=== PATIENT | male | born 1940 | race Caucasian/White ===

== ENCOUNTER 2016-06-18 16:22 | Emergency (ER) | payer MEDICARE, OTHER ==
[~2016-06-18 16:22] MED LIST: AMIT10 PO; ASAB PO; BIST PO; CALTRA600D PO; CARASPUDL PO; CENTRUM PO; CENTRUM SILVER PO; CENTRUM TAB1 TAB PO; CITRACAL PO; CORDARONE PO; CYANO1000T PO; DEPAKOT250 PO; DSS PO; DURA25 TOP; ERY-TAB250 MG PO; IRON OTC PO; IRON PO; IRON325 MG PO; K500 PO; KEFLEX PO; KENCR.1 TOP; LOP25 PO; LORTABLIQ PO; MEGACEUDL PO; MELA3 PO; METOPROLOL; METOPROLOL 12.5 MG PO; METOPROLOL 25MG PO; OS500+D PO; OXYIR5 MG PO; PCET PO; PERCOCET1 TA2 PO; PLAVIX PO; PRILO PO; PRILOSEC40 MG PO; PRIN5 PO; PROTONIX PO; REG PO; STERAP512; T PO; VITAMIN B PO; VITAMIN D OTC PO; VITAMIN D1000 UNI1 PO; VITAMIN D31000 UNIT PO; VITAMIN D400 UNI1 PO; ZOCOR10 PO; ZOCOR20 PO; [UNRECOGNIZED DRUG - REMARK] PO
[2016-06-18 17:49] LABS: BASOPHILS 0.2 %; BASOPHILS ABSOLUTE 0.01 10/3/uL (0.0-0.16); EOSINOPHILS 0.8 %; EOSINOPHILS ABSOLUTE 0.05 10/3/uL (0.0-0.53); ER CBC TAT 0 Hrs 05 Mins; HEMATOCRIT 32.2 % (40.0-51.0); HEMOGLOBIN 10.8 g/dL (13.6-17.8); IMMATURE GRANULOCYTES 0.8 %; IMMATURE GRANULOCYTES ABSOLUTE 0.05 10/3/uL (0.0-0.11); MEAN CORPUSCULAR HEMOGLOB 32.2 pg (26.0-34.0); MEAN PLATELET VOLUME 11.9 fL (9.2-13.0); MONOCYTES 16.3 %; MONOCYTES ABSOLUTE 1.08 10/3/uL (0.21-1.20); NEUTROPHILS 69.9 %; NEUTROPHILS ABSOLUTE 4.65 10/3/uL (2.02-8.40); PLATELET COUNT 149 10/3/uL (150-400); RED CELL COUNT 3.35 10/6/uL (4.7-6.1); WHITE BLOOD CELLS 6.6 10/3/uL (4.5-10.5)
[2016-06-18 17:51] LABS: MANUAL DIFF NO %; MEAN CORPUS HGB CONC 33.5 g/dL (32.0-36.0); MEAN CORPUSCULAR VOLUME 96.1 fL (80-100); RBC DISTRIBUTION WIDTH 17.1 % (12.0-16.0)
[2016-06-18 17:58] LABS: INTERNATIONAL NORMAL RATI 1.1 UNITS (-); PARTIAL THROMBO TIME 28.2 SEC (22.5-37.2); PROTIME (NOT ORD) 14.5 SEC (12.0-14.5)
[2016-06-18 18:08] LABS: CALCIUM, SERUM 8.6 MG/DL (8.5-10.4); CHLORIDE, SERUM 108 MMOL/L (96-112); CO2 (CARBON DIOXIDE) 23 MMOL/L (24-34); CREATININE 0.93 MG/DL (0.70-1.30); GFR AFRICAN AMERICAN 92 ML/MIN (>=60); GFR NON AFRICAN AMERICAN 79 ML/MIN (>=60); GLUCOSE, SERUM 100 MG/DL (60-99); SODIUM, SERUM 142 MMOL/L (135-148)
[2016-06-18 18:09] LABS: BUN (BLOOD UREA NITROGEN) 24 MG/DL (6-23)
[2016-06-18 18:11] LABS: CHEST PAIN PROFILE TAT 0 Hrs 27 Mins; TROPONIN I 0.06 NG/ML (<0.05)
[2016-06-18] MEDS ORDERED: MEGACEUDL PO (19:09)
[2016-06-18] MEDS ORDERED: ADVIL PO (19:10)
[2016-06-18 19:11] LABS: ALBUMIN 2.5 G/DL (3.5-5.0); ALKALINE PHOSPHATASE 101 U/L (45-117); DIRECT BILIRUBIN 0.2 MG/DL (0.0-0.4); INDIRECT BILIRUBIN(NOT ORDER) 0.2 MG/DL (0.1-0.9); SGOT(AST) 52 U/L (5-40); SGPT(ALT) 69 U/L (5-65); TOTAL BILIRUBIN 0.4 MG/DL (0-1.2); TOTAL PROTEIN 6.8 G/DL (6.0-8.5)
[2016-06-18 20:09] LABS: INFLUENZA A SCREEN NEGATIVE (NEGATIVE); INFLUENZA B SCREEN NEGATIVE (NEGATIVE)
[2016-11-03] MEDS ORDERED: SINCR25100 PO (17:41)
[2016-11-03] MEDS ORDERED: LOP25 PO (17:42)
[2016-11-03] MEDS ORDERED: AMIT10 PO (17:42)
[2016-11-03] MEDS ORDERED: PRILO PO (17:42)
[2016-11-03] MEDS ORDERED: ZOCOR10 PO (17:42)
[2016-11-03] MEDS ORDERED: ENDOCET1 TAB PO (17:43)
[2016-11-03] MEDS ORDERED: L20 PO (17:43)
[2016-11-03] MEDS ORDERED: ASAB PO (17:43)
[2016-11-03] MEDS ORDERED: BIST PO (17:44)
[2016-11-03] MEDS ORDERED: CALCIUM +VIT D PO (17:45)
[2016-11-03] MEDS ORDERED: CENTRUM PO (17:45)
[2016-11-03] MEDS ORDERED: IRON SUPPLEMENT PO (17:45)
[2016-11-03] MEDS ORDERED: VITAMIN D31000 UNIT PO (17:46)
[2016-11-03] MEDS ORDERED: ADVIL PO (17:47)
== END 2016-06-18 20:36 | disposition home or self-care (01) ==
LOC: ER 16:22
PROVIDERS: Emergency Medicine; Hospitalist
DX: E46 Unspecified protein-calorie malnutrition (principal); Z86.73 Personal history of transient ischemic attack (TIA), and cerebral infarction without residual deficits; Z95.1 Presence of aortocoronary bypass graft; Z79.82 Long term (current) use of aspirin; Z79.899 Other long term (current) drug therapy
CPT/HCPCS: 71010; 80048; 80076; 83735; 83880; 84484; 85025; 85610; 85730; 87040; 87804; 93970; 99284

== ENCOUNTER 2016-09-02 15:15 | Inpatient (IN) | payer MEDICARE, OTHER ==
--- NOTE | ~2016-09-02 | OP ---
Record Of Operation [facility] [address] [place]. [address] NAME: TEODORO MCCLAIN : 40 STATUS : ADM IN PAT#: [id number] AGE: 76 ADM/REG DATE : 09/02/16 MR#: [id number] REPORT SERV DATE: 09/04/16 DICTATED BY: PATRICIA ESCALANTE III DATE: 09/04/16 REPORT STATUS : Draft TRANSCRIBED BY: MODL DATE: 09/04/16 DATE OF PROCEDURE: 09/04/2016 PREOPERATIVE DIAGNOSES: Chronic malnutrition, severe gastroparesis, with Staph sepsis, presumably related to Port-A-Cath. POSTOPERATIVE DIAGNOSES: Chronic malnutrition, severe gastroparesis, with Staph sepsis, presumably related to Port-A-Cath. PROCEDURE: Removal of left subclavian vein Port-A-Cath. SURGEON: Patricia Escalante M.D. ANESTHESIA: Local with sedation. COMPLICATIONS: None. ESTIMATED BLOOD LOSS: 20 mL. SPECIMENS: Port-A-Cath for culture and identification. DRAINS: None. LAP AND SPONGE COUNT: Correct x3. BRIEF HISTORY: This 76-year-old male, had been admitted to the hospital emergently with evidence for sepsis. Blood cultures returned being positive for gram-positive Staph. After complete workup, it was felt that the patient's Port-A-Cath, which has been in place for four years, was the most likely source for this. It was felt that removal of Port-A-Cath was indicated. The procedure, risks, benefits, and alternatives, including not limited to the risk for bleeding, infection, air embolus, pericardial tamponade, dislodgement of the Port-A-Cath tubing requiring extraction, and unforeseen complications including deep venous thrombosis, pulmonary embolus, myocardial infarction, stroke, pneumonia, and , were fully explained to the patient and family prior to surgery. Their questions were answered. They understood the risks and agreed to proceed with the procedure as planned. DESCRIPTION OF PROCEDURE: After being properly identified, and after discussing the risks and benefits of surgery with him again in the preoperative area, the patient was taken to the operating room and placed in the supine position on the operating room table. He was lightly sedated per Anesthesia. The upper chest and neck areas were prepped and draped sterilely in the usual fashion. After an appropriate "time-out" per JCAHO standards, the skin and subcutaneous tissue over the Port-A-Cath in the left infraclavicular area was injected with 1% lidocaine. After assuring adequate anesthesia, a small transverse incision was made directly over the Port-A-Cath. The incision was continued through the subcutaneous tissue. There was extensive and excessive bleeding from the subcutaneous tissue. Record Of Operation [address] [place]. [address] NAME: TEODORO MCCLAIN : 40 STATUS : ADM IN PAT#: [id number] AGE: 76 ADM/REG DATE : 09/02/16 MR#: [id number] REPORT SERV DATE: 09/04/16 DICTATED BY: PATRICIA ESCALANTE III DATE: 09/04/16 REPORT STATUS : Draft TRANSCRIBED BY: YVONNE DATE: 09/04/16 The capsule around the Port-A-Cath housing was identified. The capsule was opened. The sutures holding the Port-A-Cath in place were divided. The entire Port-A-Cath housing and tubing were removed. The tubing and Port-A-Cath housing appeared to be normal with no obvious evidence for infection. There was extensive bleeding from all areas. The bleeding was controlled with the cautery and 3-0 Vicryl sutures. The exit site of the Port-A-Cath tubing from the subcutaneous tissue was closed with running 3-0 Vicryl suture. The skin was closed with running subcuticular 4-0 Monocryl stitch. Dressings were applied. The patient was taken to the recovery room in stable condition. He tolerated procedure well. He his family was informed the results of surgery. The patient will remain in the hospital for his sepsis. ASHOK/YVONNE Patricia Escalante III, M.D. / [id number] CC: MD Rolly Vogel M.D.
--- NOTE | ~2016-09-02 | DS ---
Discharge Summary [facility] [address] [place]. [address] NAME: TEODORO MCCLAIN : 40 STATUS : DIS IN PAT#: [id number] AGE: 76 ADM/REG DATE : 09/02/16 MR#: [id number] REPORT SERV DATE: 09/13/16 DICTATED BY: JALIL WONG DATE: 09/08/16 REPORT STATUS : Draft TRANSCRIBED BY: YVONNE DATE: 09/08/16 ADMISSION DATE: 09/02/2016 DISCHARGE DATE: 09/08/2016 CONSULTATION: General Surgery, Dr. Alfredito Durbin. INVASIVE PROCEDURES: Removal of left subclavian vein Port-A-Cath. DISCHARGE DIAGNOSES: 1. Severe sepsis. 2. Left subclavian Port-A-Cath infection, status post-surgical removal. 3. Chronic protein energy malnutrition. 4. History of gastroesophageal cancer, status post proximal gastrectomy in the past. 5. History of profound malnutrition related to severe gastroparesis. 6. History of hypertension. 7. History of coronary artery disease. 8. History of obstructive sleep apnea. 9. Demand ischemia. 10.History of prostate cancer. 11.Remote history of Guillain-Juneau syndrome. 12.History of heart failures with reduced ejection fraction of 45%. 13.History of acute kidney injury. 14.History of Parkinson's disease. DISCHARGE CONDITION: Stable. HISTORY OF PRESENT ILLNESS: For detailed HPI, please make reference to Dr. Enid Flowers's dictation on September 02, 2016. In brief, this is a 76-year-old male with medical history of gastroesophageal cancer, status post partial gastrectomy, radiation therapy, and known history of gastroparesis, who is currently dependent on TPN. He presented to the hospital with complaints of generalized weakness, lethargy, drowsiness, and was found to have a fever of 102 at home. On arrival in the ER, blood pressure was 82/55 mmHg, responded to 1 L of IV fluid bolus. BP improved to 107/65, heart rate was 102, temperature 98.3. Physical examination noted for the presence of a Port-A-Cath in the chest wall. Laboratory data; WBC 17.2, hemoglobin was 12.1, hematocrit was 34.6, creatinine was 1.31. Chest x-ray showed persistent bibasilar atelectasis, no new lung infiltrates noted. An assessment of severe sepsis likely due to Port-A-Cath infection was made in the ER. The patient was admitted to the Hospitalist Service. Severe sepsis, likely due to Port-A-Cath infection. The patient's blood cultures were obtained. The patient was started on broad-spectrum antibiotics with IV vancomycin and Zosyn. Blood cultures grew Staph epidermidis positive in 2 bottles. Despite IV antibiotics, the patient was noted to have persistent acidosis and hypotension. General Surgery was consulted for evaluation of removal of the subclavian Port-A-Cath. Given lack of significant clinical improvement to IV antibiotics, it was concluded that the subclavian Discharge Summary [facility] [address] [facility] [place]. [address] NAME: TEODORO MCCLAIN : 40 STATUS : DIS IN PAT#: [id number] AGE: 76 ADM/REG DATE : 09/02/16 MR#: [id number] REPORT SERV DATE: 09/13/16 DICTATED BY: JALIL WONG DATE: 09/08/16 REPORT STATUS : Draft TRANSCRIBED BY: YVONNE DATE: 09/08/16 Port-A-Cath be removed. The patient underwent removal of subclavian Port-A-Cath during this admission without any significant complication. The tip of Port-A-Cath was cultured, was positive for Staph. Subsequently, the patient's blood pressure improved, the patient became less acidotic and remained stable. Infectious Disease was consulted. Recommended to discontinue vancomycin and place the patient on cefazolin. Per Infectious Disease, the patient will require a total of 14 days of therapy of IV antibiotics. The patient will be discharged to a group home to complete a total of 14 days of IV Ancef. Demand ischemia. The patient's troponin was significantly elevated on presentation, but the patient had no chest pain. No evidence of ST changes on EKG. Hence, no invasive cardiac intervention was pursued during this admission. Elevated troponin likely due to demand ischemia secondary to severe sepsis. The patient's troponin gradually trended down and remained stable. Severe malnutrition due to severe gastroparesis secondary to history of gastroesophageal cancer. The patient is chronically on TPN via Port-A-Cath prior to admission. Port-A-Cath was removed due to concern for severe sepsis during this admission. A PICC line was placed. The patient will currently continue TPN. The patient will follow up with Dr. Durbin as an outpatient for a trial of placement of PEG tube. Heart failure with reduced EF. The patient was euvolemic throughout the course of this admission. No evidence of acute decompensated heart failure. The patient was advised to continue p.o. diuretics and follow up with Cardiology as an outpatient. Acute kidney injury secondary to severe sepsis and hypotension. The patient's creatinine trended up from a baseline of 0.9 to about 1.4. After resolution of sepsis and hypotension, the patient's creatinine trended back down to baseline. The patient was advised to continue followup with primary care physician. DISCHARGE MEDICATIONS: 1. IV cefazolin. 2. Carbidopa/levodopa. 3. Vitamin D3. 4. Lopressor 12.5 mg p.o. b.i.d. 5. Omeprazole 20 mg p.o. daily. 6. Zocor 20 mg p.o. daily. 7. Dulcolax 5 mg p.o. daily. DISCHARGE DISPOSITION: SNF versus rehab. DISCHARGE ACTIVITIES: As tolerated. The patient will require acute rehab at group home. At the time of this dictation, the patient has been chosen for [facility], now awaiting insurance approval. If the patient is approved by insurance, he will likely leave the hospital today. Greater than 35 minutes were used to prepare this patient's discharge summary, reconcile medication, and advise the patient on discharge plans and followup. Discharge Summary [address] [address] NAME: TEODORO MCCLAIN : 40 STATUS : DIS IN PAT#: [id number] AGE: 76 ADM/REG DATE : 09/02/16 MR#: [id number] REPORT SERV DATE: 09/13/16 DICTATED BY: JALIL WONG DATE: 09/08/16 REPORT STATUS : Draft TRANSCRIBED BY: YVONNE DATE: 09/08/16 ADDENDUM The patient's discharge was canceled yesterday because the patient's insurance was not approved for placement at [facility] [place]. However, this morning the insurance approval was gone through and the patient will be discharged. No acute events happened overnight. The patient will be discharged on the above plans dictated on the discharge summary of 09/08/[address] Jalil Wong. DICTATED BY: Jalil Wong MD IOO/ROBINL Jalil Wong MD / [id number] / [id number] CC: MD Rolly Vogel M.D. Richard Hunter Jennings III, M.D.
--- NOTE | ~2016-09-02 | CN ---
Consultation Report [facility] [address] [facility] [place]. [address] NAME: TEODORO CHANEL : 40 STATUS : ADM IN [facility]#: [id number] AGE: 76 ADM/REG DATE : 09/02/16 MR#: [id number] REPORT SERV DATE: 09/06/16 DICTATED BY: PATRICIA ESCALANTE III DATE: 09/04/16 REPORT STATUS : Draft TRANSCRIBED BY: MODL DATE: 09/04/16 CONSULTATION DATE OF CONSULTATION: 09/03/2016 REASON FOR CONSULT: 1. Sepsis. 2. Evaluation regarding possible Port-A-Cath infection. HISTORY OF PRESENT ILLNESS: This is a 76-year-old male, with a history which is very complicated and prolonged related to gastric cancer, was found on the day of admission to be severely weak. The patient's stated that he became very lethargic and very sleepy and unresponsive. He is unable to walk secondary to severe weakness. The patient was to be admitted to the hospital directly, was brought by ambulance to the emergency room where he was found to be in septic shock. The patient had a temperature of 102 degrees at home. The patient is on chronic TPN currently related to severe gastroparesis. This is related to a previous proximal gastrectomy in which the patient had a cancer several years ago. The patient has been intermittently on TPN and jejunal feedings. Most recently he has been on TPN because his last jejunal feeding tube had to be removed secondary to severe leakage around the tube with excoriation and breakdown of the skin which could not be managed further. The feeding tube was removed and has been on TPN in anticipation of replacing feeding tube surgically. The patient has been extremely ill chronically and fragile. His last feeding tube placement was involved with a prolonged postop recovery due to multiple comorbid risk factors. PAST MEDICAL HISTORY: 1. History of gastroesophageal cancer, status post proximal gastrectomy in the past. 2. History of profound malnutrition related to severe gastroparesis. The patient has been evaluated for PEG tube placement in the past, but because of the anatomy and the small size of the remaining gastric pouch, this cannot be performed. 3. History of severe gastroparesis with malnutrition related to this. 4. Hypertension in the past. 5. Coronary artery disease. 6. History of obstructive sleep apnea. 7. History of Guillain-Philmont syndrome. The patient become progressively symptomatic regarding this. 8. History of prostate cancer. 9. History of transient ischemic attack in the past. The patient has been on IV treatment for his Guillain-Philmont syndrome. PAST SURGERIES: Include proximal gastrectomy, coronary artery bypass graft and mitral valve repair, multiple J-tube placement, cardiac ablation, history of pericardial window, and history of multiple endoscopies. Consultation Report [facility] [address] [place]. [address] NAME: TEODORO CHANEL : 40 STATUS : ADM IN PAT#: [id number] AGE: 76 ADM/REG DATE : 09/02/16 MR#: [id number] REPORT SERV DATE: 09/06/16 DICTATED BY: PATRICIA ESCALANTE III DATE: 09/04/16 REPORT STATUS : Draft TRANSCRIBED BY: YVONNE DATE: 09/04/16 SOCIAL HISTORY: The patient is . He is retired. He lives locally. ALLERGIES: NONE. MEDICATIONS: As per medication list which I reviewed. REVIEW OF SYSTEMS: The patient was noted to be dyspneic on admission. He had some pulmonary congestion noted by the ER physician. He was felt most likely to have pneumonia. However, chest x-ray showed no acute process. PHYSICAL EXAMINATION: GENERAL: Reveals a frail, chronically ill appearing male, in no acute distress. He is alert and oriented x3, but was lethargic on route to the emergency room. VITAL SIGNS: Blood pressure is 95/50, temperature 97.2, pulse 84. HEENT: Unremarkable. Cranial nerves 2 through 12 were normal. LUNGS: Clear. CARDIAC: Normal. ABDOMEN: Soft, nontender. The patient has a left infraclavicular Port-A-Cath in place. The area is normal. There are no erythema, no tenderness, no fluctuance noted. No obvious evidence for infection associated with this. EXTREMITIES: Normal. LABORATORY DATA: The patient's electrolytes are remarkable for an elevated BUN of 34. His procalcitonin is elevated at 11.4. White blood cell count elevated at 17. ASSESSMENT: 76-year-old male with sepsis, associated with hypotension, fever and leukocytosis. This was felt possibly related to a pulmonary etiology, but infection of the patient's Port-A-Cath is also a possibility. Blood cultures are pending. PLAN: The patient has been admitted empirically on antibiotics. CT scan of the chest, abdomen, pelvis has been ordered. The patient's Port-A-Cath has been in place for four years. If the patient's blood cultures return showing gram-positive organism, then this may be the source of his infection and consideration for Port-A-Cath will be needed. This plan has been explained to the patient. At this time, there is no indication for surgical intervention immediately. The patient's questions have been answered. He understands and agrees to this as planned. ADDENDUM: Mr. Chanel is stable at this time. He has improved clinically. He is now alert and oriented. However, he remained somewhat hypotensive with a systolic blood pressure of 100. Although his white blood cell count has returned to normal, his blood cultures returned showing positive for Staph organism. I have discussed this with Dr. Chambers. Although the patient has improved clinically, it is felt that most likely the Port-A-Cath was in place Consultation Report [address] [place]. [address] NAME: TEODORO CHANEL : 40 STATUS : ADM IN PAT#: [id number] AGE: 76 ADM/REG DATE : 09/02/16 MR#: [id number] REPORT SERV DATE: 09/06/16 DICTATED BY: PATRICIA ESCALANTE III DATE: 09/04/16 REPORT STATUS : Draft TRANSCRIBED BY: YVONNE DATE: 09/04/16 for 4 years, is the source for his sepsis. We were not certain that this can be treated nonoperatively and therefore, I feel the safest option for the patient to be to remove his Port-A-Cath. The patient will need a PICC line to allow for parenteral nutrition during this time and his Port-A-Cath can be replaced in several weeks. At this time, the patient is too ill and I feel too frail to consider replacement of jejunal feeding tube which would be the best option for him. At the time of his last surgery, although the surgery went well, his postoperative course was very prolonged and nearly fatal too secondary to GI bleeding and multiple comorbid risk factors. For this reason, at this time, I feel the safest option for the patient is continued TPN. We will schedule the patient for removal of his Port-A-Cath today. This procedure, the risks, benefits, and alternatives, including but not limited to the risk for bleeding, infection, air embolus, pericardial tamponade, dislodgement of the Port-A-Cath tubing requiring extraction, and unforeseen complications including deep venous thrombosis, pulmonary embolus, myocardial infarction, stroke, pneumonia, and , have been explained to the patient prior to surgery. His questions have been answered. He understands the risks and agrees to surgery as planned. RHJ/MODL Patricia Escalante III, M.D. / [id number] / [id number] CC: Abhilash Niño M.D.
--- NOTE | ~2016-09-02 | PREOPHP ---
PreOp History and Physical [address] [place]. [address] NAME: TEODORO MCCLAIN : 40 STATUS : ADM IN [facility]#: [id number] AGE: 76 ADM/REG DATE : 09/02/16 MR#: [id number] REPORT SERV DATE: 09/06/16 DICTATED BY: PATRICIA DURBIN III DATE: 09/01/16 REPORT STATUS : Draft TRANSCRIBED BY: MODL DATE: 09/01/16 HISTORY OF PRESENT ILLNESS: This 76-year-old male comes to the operating room for jejunal feeding tube placement for severe gastroparesis. The patient has had a previous history of gastric cancer. He is status post a previous proximal gastrectomy. The patient has severe gastroparesis and is unable to tolerate any significant amount of food orally. He comes now for placement of a jejunal feeding tube. The patient has had several feeding tubes in the past which had to be removed secondary to uncontrollable drainage. PAST MEDICAL HISTORY: 1. History of gastric cancer as above. 2. History of depression. 3. History of hypercholesterolemia. 4. History of malnutrition. 5. Gastroesophageal reflux disease. 6. History of small-bowel resection performed for radiation enteritis in 2013. ALLERGIES: NONE. MEDICATIONS: As per medication list. SOCIAL HISTORY: The patient is retired. He is . He lives locally. No history of alcohol use. FAMILY HISTORY: Positive for stroke. REVIEW OF SYSTEMS: The patient complains of frequent falls which has been evaluated by Neurology, complains of severe weakness. He is unable to tolerate any significant amount of food orally due to severe gastroparesis. This has been evaluated endoscopically in the recent past. OBJECTIVE PHYSICAL EXAM: GENERAL: A frail chronically ill appearing male, in no acute distress. He is alert and oriented x3. HEENT: Unremarkable. Cranial nerves 2 through 12 were normal. LUNGS: Clear. CARDIAC: Normal. ABDOMEN: Soft, nontender. ASSESSMENT: 1. A 76-year-old male with severe gastroparesis with severe malnutrition, with need for jejunal feeding tube placement. 2. History of previous jejunal feeding tubes in the past, which had to be removed secondary to a prolonged drainage. 3. History of gastric cancer, treated with proximal gastrectomy in 07/2012 with no evidence for recurrent disease. 4. Hypertension. 5. Gastroesophageal reflux disease. PreOp History and Physical [address] [place]. [address] NAME: TEODORO MCCLAIN : 40 STATUS : ADM IN [facility]#: [id number] AGE: 76 ADM/REG DATE : 09/02/16 MR#: [id number] REPORT SERV DATE: 09/06/16 DICTATED BY: PATRICIA DURBIN III DATE: 09/01/16 REPORT STATUS : Draft TRANSCRIBED BY: MODL DATE: 09/01/16 PLAN: The patient comes to the operating room now for open jejunal feeding tube placement. The fact that this is a major operation with risk for major morbidity and mortality has been explained. The procedure, risks, benefits, and alternatives, including but not limited to the risk for bleeding, infection, enterotomy, injury to abdominal structure, postop small bowel obstruction, ileus, incisional hernia, dehiscence, leakage around the tube, again requiring removal, dysfunction of the tube or migration requiring revision or replacement, and unforeseen complications including deep venous thrombosis, pulmonary embolus, myocardial infarction, stroke, pneumonia, and , have been fully explained to the patient and family. Their questions have been answered. They understand the risks and agreed to surgery as planned. ASHOK/YVONNE Patricia Durbin III, M.D. / [id number]
--- NOTE | ~2016-09-02 | HP ---
History And Physical [place] [id number] [facility] [place]. [address] NAME: TEODORO MCCLAIN : 40 STATUS : ADM IN MERGED WITH [facility]#: [id number] AGE: 76 ADM/REG DATE : 09/02/16 MR#: [id number] REPORT SERV DATE: 09/02/16 DICTATED BY: ДМИТРИЙ SNIDER DATE: 09/02/16 REPORT STATUS : Draft TRANSCRIBED BY: MODL DATE: 09/02/16 DATE OF ADMISSION: 09/02/2016 The patient is a very pleasant 76-year-old male with a past medical history of gastroesophageal cancer, status post partial gastrectomy and currently was on TPN and he was supposed to see Dr. Durbin for gastrojejunal tube placement. According to the patient's , the patient was not doing well and he was lethargic, very weak, sleepy. He was unable to walk because of severe weakness, and he was supposed to come to see Dr. Durbin as a direct admission but ambulance brought him to [facility] emergency room. According to patient's , the patient had fever at home 102 and he did not have significant cough but his lungs were congested. The patient is lethargic when I saw him, he wakes up easily, then he goes to sleep again. He denies any chest pain, no shortness of breath, very weak, even unable to sit in bed. Blood pressure was low, on presentation was 95/58, 82/55. After normal saline 1 L bolus, became also 96/65. The patient reported that his baseline blood pressure is 110/70. PAST MEDICAL HISTORY: History of gastroesophageal cancer status post proximal gastrectomy. History of multiple feeding tubes in the past. Severe gastroparesis. Severe malnourishment, can only take clear liquids and ice cream. Hypertension. Obstructive sleep apnea. Coronary artery disease, status post coronary artery bypass grafting. 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 History of transient ischemic attacks in the past. History of proximal gastric cancer. History of prostate cancer. Profound weakness. History of recent clavicular fracture. Obstructive sleep apnea. Hypertension. History of cholelithiasis. History of diverticulosis. Obstructive sleep apnea, intolerant of CPAP. 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 History of supraventricular tachycardia, status post ablation. History of cerebral aneurysm x2, status post surgery. History of cryptococcal infection with possible pneumonia in the past with history of pulmonary nodules in 2002. History of TIA. History of mitral valve replacement. History of compression fracture of the spine. Nephrolithiasis. The patient has history of severe colitis in the past with bleeding and he was hospitalized for a long time for that. Also the patient is on carbidopa and levodopa but he does not have Parkinsonism. According to the patient's , he does not have a diagnosis of Parkinson's disease. PAST SURGICAL HISTORY: Includes coronary artery bypass grafting and a mitral valve repair, multiple jejunal feeding tube placement and now does not have a feeding tube. Cardiac ablation for SVT cerebral aneurysm status post surgery x2. History of pericardial window in 2012. History of bilateral carpal tunnel syndrome and carpal tunnel release. History of right knee surgery. ALLERGIES: NO KNOWN DRUG ALLERGIES. SOCIAL HISTORY: He quit smoking in his 30s. He is , has two children. Retired from the [employer]. No alcohol. Lives in [place], [place]. History And Physical [address] [address] NAME: TEODORO MCCLAIN : 40 STATUS : ADM IN [facility]GED WITH [facility]#: [id number] AGE: 76 ADM/REG DATE : 09/02/16 MR#: [id number] REPORT SERV DATE: 09/02/16 DICTATED BY: ДМИТРИЙ SNIDER DATE: 09/02/16 REPORT STATUS : Draft TRANSCRIBED BY: YVONNE DATE: 09/02/16 FAMILY HISTORY: Mother with stroke. Father with Hodgkin's lymphoma. HOME MEDICATIONS: Include 1. Aspirin 81 mg daily. 2. Bisacodyl 5 mg daily p.r.n. 3. Calcium citrate 315 daily. 4. Carbidopa levodopa 25/100 three times a day. 5. Vitamin D3 1000 units daily. 6. Metoprolol 12.5 daily. 7. Multivitamins daily. 8. Omeprazole 20 mg p.o. b.i.d. 9. Simvastatin 10 mg a day. 10.Iron he takes. REVIEW OF SYSTEMS: All 14-point review of systems done and negative except what is stated in the history of present illness. PHYSICAL EXAMINATION: GENERAL: Well-nourished, well-developed male, not in acute distress. Resting quietly. VITAL SIGNS: Blood pressure on presentation 80/49, on the recheck was 96/65 after 1 L of fluid boluses. Heart rate was 107, then came down to 90s but when he moves, it becomes like 100 to 107. Oxygen saturation 97% on room air. Temperature 98.3, but earlier was 102. Oxygen saturation 97% on room air. HEENT: Head atraumatic, normocephalic. Conjunctivae clear. Pupils are equal and reactive to light and accommodation. Extraocular muscles are intact. NECK: Supple. Trachea is midline. No supraclavicular or cervical lymphadenopathy. LUNGS: Coarse breath sounds with rhonchi. Decreased respiratory effort. CARDIOVASCULAR SYSTEM: Regular rate and rhythm. Mildly tachycardic. ABDOMEN: Soft, nontender, nondistended. Positive normoactive bowel sounds. EXTREMITIES: No clubbing, cyanosis, or edema. SKIN: Normal color, slightly decreased turgor. NEUROLOGICAL: He is lethargic but wakes up easily. He is awake, alert, oriented in time, place, and person and also his Port-A-Cath area looks clean. LABORATORY RESULTS: White count 17.2, hemoglobin 12.1, hematocrit 34.6, and platelet count 80,000. PT 17.9, INR 1.5. Sodium 144, potassium 4, chloride 112, carbon dioxide 24, BUN 34, creatinine 1.31, and his blood sugar is 83, ALT 51, AST 48, and procalcitonin 11.47. Lactate is 2.2. Sodium 144, potassium 4, chloride 112, carbon dioxide 24, BUN 34, and creatinine 1.31. Blood sugar is 83. UA shows moderate amount of leukocyte esterase with 16 white cells. Chest x-ray, persistent bibasilar atelectasis. No new lung infiltrates are present. Stable calcified lung masses on the right that has been present dating back to 2011. EKG showed sinus tachycardia with left axis deviation and left bundle branch block. Heart rate of 108. ASSESSMENT AND PLAN: This is a 76-year-old male with a history of gastric cancer status post History And Physical [address] [address] NAME: TEODORO MCCLAIN : 40 STATUS : ADM IN [facility]ED WITH [facility]#: [id number] AGE: 76 ADM/REG DATE : 09/02/16 MR#: [id number] REPORT SERV DATE: 09/02/16 DICTATED BY: ДМИТРИЙ SNIDER DATE: 09/02/16 REPORT STATUS : Draft TRANSCRIBED BY: YVONNE DATE: 09/02/16 partial gastrectomy with chronic Port-A-Cath placement with multiple medical problems, presented with full blown sepsis. He has fever, hypotension, tachycardia, leukocytosis with thrombocytopenia, and extremely elevated procalcitonin level which are consistent with sepsis and question what is the source of sepsis if he has pneumonia although chest x-ray did not show pneumonia but clinical examination of the lungs highly suspicious for pneumonia or it could be infection related to luiq-f-uroohved. We will put the patient on broad antibiotic coverage. We will put him on vancomycin and cefepime and we will monitor him closely. Currently, he responded to IV fluid boluses and blood pressure is in 90 systolic. We are going to check his blood pressure every hour. We will put him on a telemetry bed. If blood pressure will decrease, we will put him in the intensive in the intensive care unit for intermediate care unit as well as I will order CT on the chest without contrast and also I will ask Dr. Durbin to evaluate his [id number]-riccrbqo. His white count is elevated to 17,300 with elevated procalcitonin which is highly suggestive of sepsis. Coagulopathy with decreased platelet count. Mildly elevated PT and INR. We will monitor. This is related to sepsis. 1. Mild acute kidney injury. Prerenal azotemia. Creatinine 1.31. IV fluids will be continued and Dr. Durbin will be consulted as well as Infectious Disease will be consulted. We will also give him albuterol ipratropium breathing treatment and code status was discussed with the patient and they want him to be a full code. 2. My partner will see this patient starting tomorrow morning. MG/MODL Дмитрий Snider M.D. / [id number] CC: Abhilash Niño M.D. Richard Hunter Jennings III, M.D.
[~2016-09-02 15:15] MED LIST changes: +ADVIL PO
[2016-09-02] MEDS ORDERED: SIN25 PO (15:44)
[2016-09-02 16:01] LABS: BASOPHILS 0.1 %; BASOPHILS ABSOLUTE 0.01 10/3/uL (0.0-0.16); EOSINOPHILS 0 %; HEMATOCRIT 34.6 % (40.0-51.0); HEMOGLOBIN 12.1 g/dL (13.6-17.8); IMMATURE GRANULOCYTES 1.2 %; LYMPHOCYTES 1.9 %; LYMPHOCYTES ABSOLUTE 0.33 10/3/uL (0.67-4.30); MEAN CORPUSCULAR HEMOGLOB 32.2 pg (26.0-34.0); MEAN PLATELET VOLUME 12.4 fL (9.2-13.0); MONOCYTES 4.6 %; MONOCYTES ABSOLUTE 0.79 10/3/uL (0.21-1.20); NEUTROPHILS 92.2 %; NEUTROPHILS ABSOLUTE 15.86 10/3/uL (2.02-8.40); RBC DISTRIBUTION WIDTH 15.8 % (12.0-16.0); RED CELL COUNT 3.76 10/6/uL (4.7-6.1)
[2016-09-02 16:03] LABS: ER CBC TAT 0 Hrs 07 Mins; MANUAL DIFF NO %; PLATELET COUNT 80 10/3/uL (150-400); WHITE BLOOD CELLS 17.2 10/3/uL (4.5-10.5)
[2016-09-02 16:08] LABS: INTERNATIONAL NORMAL RATI 1.5 UNITS (-)
[2016-09-02 16:14] LABS: A/G RATIO 0.8 (0.7-1.9); ALBUMIN 2.4 G/DL (3.5-5.0); ALKALINE PHOSPHATASE 90 U/L (45-117); CALCIUM, SERUM 8.2 MG/DL (8.5-10.4); CHLORIDE, SERUM 112 MMOL/L (96-112); CO2 (CARBON DIOXIDE) 24 MMOL/L (24-34); CREATININE 1.31 MG/DL (0.70-1.30); GFR AFRICAN AMERICAN 61 ML/MIN (>=60); GFR NON AFRICAN AMERICAN 53 ML/MIN (>=60); GLOBULIN 3.2 G/DL (2.5-4.1); GLUCOSE, SERUM 83 MG/DL (60-99); SGOT(AST) 48 U/L (5-40); SGPT(ALT) 51 U/L (5-65); SODIUM, SERUM 144 MMOL/L (135-148); TOTAL BILIRUBIN 0.8 MG/DL (0-1.2); TOTAL PROTEIN 5.6 G/DL (6.0-8.5)
[2016-09-02 16:15] LABS: PROTIME (NOT ORD) 17.9 SEC (12.0-14.5)
[2016-09-02 16:16] LABS: BUN (BLOOD UREA NITROGEN) 34 MG/DL (6-23)
[2016-09-02 16:19] LABS: LACTATE 2.2 MMOL/L (0.3-2.4)
[2016-09-02 16:49] LABS: PROCALCITONIN 11.47 ng/mL (<0.5)
[2016-09-02 17:13] LABS: ASCORBIC ACID (UR NOT ORDER) NEG (NEG); BILIRUBIN, URINE NEGATIVE (NEG); ER URINALYSIS TAT 0 Hrs 08 Mins; KETONE, URINE NEGATIVE (NEG); LEUKOCYTE ESTERASE(NOT OR MOD (NEG); NITRITE (URINE) NEG (NEG); WBC (NOT ORDERED) (RFLEX) 16 (0-5)
[2016-09-02 20:33] LABS: TROPONIN I 0.53 NG/ML (<0.05); ULTRASENSITIVE TSH 1.06 MCIU/ML (0.358-3.740)
[2016-09-02 20:46] LABS: PROCALCITONIN 11.25 ng/mL (<0.5)
[2016-09-02 21:02] LABS: ALLENS TEST Pos; BE (BASE EXCESS) -4.6 MEQ/L (0 +/- 2.5); CARBOXYHEMOGLOBIN 0.3 % (0-3); HCO3 (ACTUAL BICARBONATE) 18.2 MEQ/L (23-27); HEMOBLOGIN CONTENT 11.5 G/DL (14-18); INSTRUMENT SERIAL # 35151; METHEMOGLOBIN 0.7 % (0-3); OPERATOR ID 23712; PCO2 (CO2 TENSION) 27 MMHG (35-45); PO2 (O2 TENSION) 69 MMHG (79-93); SAMPLE Arterial; pH 7.45 (7.37-7.43)
[2016-09-03 07:15] LABS: BASOPHILS 0 %; EOSINOPHILS 0.1 %; EOSINOPHILS ABSOLUTE 0.01 10/3/uL (0.0-0.53); HEMOGLOBIN 10.7 g/dL (13.6-17.8); IMMATURE GRANULOCYTES 0.7 %; IMMATURE GRANULOCYTES ABSOLUTE 0.08 10/3/uL (0.0-0.11); LYMPHOCYTES 2.1 %; LYMPHOCYTES ABSOLUTE 0.25 10/3/uL (0.67-4.30); MEAN CORPUS HGB CONC 35.2 g/dL (32.0-36.0); MEAN CORPUSCULAR HEMOGLOB 32.7 pg (26.0-34.0); MEAN PLATELET VOLUME 12.5 fL (9.2-13.0); MONOCYTES 7.6 %; MONOCYTES ABSOLUTE 0.93 10/3/uL (0.21-1.20); NEUTROPHILS 89.5 %; NEUTROPHILS ABSOLUTE 10.92 10/3/uL (2.02-8.40); PLATELET COUNT 76 10/3/uL (150-400); RBC DISTRIBUTION WIDTH 16.1 % (12.0-16.0); RED CELL COUNT 3.27 10/6/uL (4.7-6.1); WHITE BLOOD CELLS 12.2 10/3/uL (4.5-10.5)
[2016-09-03 07:20] LABS: HEMATOCRIT 30.4 % (40.0-51.0)
[2016-09-03 07:21] LABS: MANUAL DIFF NO %
[2016-09-03 07:24] LABS: ALBUMIN 2.3 G/DL (3.5-5.0); BUN (BLOOD UREA NITROGEN) 28 MG/DL (6-23); CALCIUM, SERUM 8.2 MG/DL (8.5-10.4); CHLORIDE, SERUM 115 MMOL/L (96-112); CO2 (CARBON DIOXIDE) 21 MMOL/L (24-34); GLUCOSE, SERUM 95 MG/DL (60-99); POTASSIUM, SERUM 3.7 MMOL/L (3.5-5.3); SODIUM, SERUM 145 MMOL/L (135-148)
[2016-09-03 07:30] LABS: A/G RATIO 0.7 (0.7-1.9); ALKALINE PHOSPHATASE 83 U/L (45-117); CREATININE 1.03 MG/DL (0.70-1.30); GFR AFRICAN AMERICAN 81 ML/MIN (>=60); GFR NON AFRICAN AMERICAN 70 ML/MIN (>=60); GLOBULIN 3.1 G/DL (2.5-4.1); SGOT(AST) 44 U/L (5-40); SGPT(ALT) 20 U/L (5-65); TOTAL BILIRUBIN 0.5 MG/DL (0-1.2); TOTAL PROTEIN 5.4 G/DL (6.0-8.5)
[2016-09-03 07:39] LABS: PLATELET ESTIMATE DEC (ADEQUATE)
[2016-09-03 07:40] LABS: RBC MORPHOLOGY NORM (NORMAL)
[2016-09-03 11:42] LABS: BASOPHILS 0.1 %; BASOPHILS ABSOLUTE 0.01 10/3/uL (0.0-0.16); EOSINOPHILS 0 %; HEMATOCRIT 29.8 % (40.0-51.0); HEMOGLOBIN 10.1 g/dL (13.6-17.8); IMMATURE GRANULOCYTES 0.5 %; IMMATURE GRANULOCYTES ABSOLUTE 0.05 10/3/uL (0.0-0.11); LYMPHOCYTES 2.3 %; LYMPHOCYTES ABSOLUTE 0.24 10/3/uL (0.67-4.30); MEAN CORPUS HGB CONC 33.9 g/dL (32.0-36.0); MEAN CORPUSCULAR HEMOGLOB 31.8 pg (26.0-34.0); MEAN CORPUSCULAR VOLUME 93.7 fL (80-100); MEAN PLATELET VOLUME 12.9 fL (9.2-13.0); MONOCYTES 6.1 %; MONOCYTES ABSOLUTE 0.64 10/3/uL (0.21-1.20); NEUTROPHILS ABSOLUTE 9.57 10/3/uL (2.02-8.40); PLATELET COUNT 69 10/3/uL (150-400); RBC DISTRIBUTION WIDTH 16.2 % (12.0-16.0); RED CELL COUNT 3.18 10/6/uL (4.7-6.1); WHITE BLOOD CELLS 10.5 10/3/uL (4.5-10.5)
[2016-09-03 11:43] LABS: MANUAL DIFF NO %
[2016-09-04 07:38] LABS: BASOPHILS 0 %; EOSINOPHILS 0.6 %; EOSINOPHILS ABSOLUTE 0.04 10/3/uL (0.0-0.53); HEMATOCRIT 27.6 % (40.0-51.0); HEMOGLOBIN 9.6 g/dL (13.6-17.8); IMMATURE GRANULOCYTES 0.6 %; IMMATURE GRANULOCYTES ABSOLUTE 0.04 10/3/uL (0.0-0.11); LYMPHOCYTES 6.6 %; LYMPHOCYTES ABSOLUTE 0.46 10/3/uL (0.67-4.30); MEAN CORPUS HGB CONC 34.8 g/dL (32.0-36.0); MEAN CORPUSCULAR HEMOGLOB 31.9 pg (26.0-34.0); MEAN CORPUSCULAR VOLUME 91.7 fL (80-100); MEAN PLATELET VOLUME 12.7 fL (9.2-13.0); MONOCYTES 7.3 %; MONOCYTES ABSOLUTE 0.51 10/3/uL (0.21-1.20); NEUTROPHILS 84.9 %; PLATELET COUNT 72 10/3/uL (150-400); RED CELL COUNT 3.01 10/6/uL (4.7-6.1)
[2016-09-04 07:47] LABS: MANUAL DIFF NO %
[2016-09-04 07:56] LABS: ALBUMIN 2.7 G/DL (3.5-5.0); CALCIUM, SERUM 8.6 MG/DL (8.5-10.4); CHLORIDE, SERUM 115 MMOL/L (96-112); CO2 (CARBON DIOXIDE) 24 MMOL/L (24-34); CREATININE 0.98 MG/DL (0.70-1.30); DIRECT BILIRUBIN 0.2 MG/DL (0.0-0.4); GFR AFRICAN AMERICAN 86 ML/MIN (>=60); GFR NON AFRICAN AMERICAN 75 ML/MIN (>=60); GLUCOSE, SERUM 96 MG/DL (60-99); INDIRECT BILIRUBIN(NOT ORDER) 0.3 MG/DL (0.1-0.9); POTASSIUM, SERUM 3.5 MMOL/L (3.5-5.3); SGOT(AST) 34 U/L (5-40); SGPT(ALT) 12 U/L (5-65); SODIUM, SERUM 146 MMOL/L (135-148); TOTAL BILIRUBIN 0.5 MG/DL (0-1.2); TOTAL PROTEIN 5.4 G/DL (6.0-8.5)
[2016-09-04 07:57] LABS: ALKALINE PHOSPHATASE 69 U/L (45-117); BUN (BLOOD UREA NITROGEN) 19 MG/DL (6-23)
[2016-09-04 08:00] LABS: HELMET CELLS OCC (0-2/OIF); PLATELET ESTIMATE DEC (ADEQUATE); POLYCHROMASIA 1+ (2-5/OIF) (0-1/OIF)
[2016-09-04 08:01] LABS: TEARDROP SHAPED RBCS OCC (0-2/OIF)
[2016-09-04 08:02] LABS: ELLIPTOCYTES 1+ (3-10/OIF) (0-2/OIF)
[2016-09-04 09:01] LABS: PROCALCITONIN 6.82 ng/mL (<0.5)
[2016-09-05 07:13] LABS: BASOPHILS 0.1 %; BASOPHILS ABSOLUTE 0.01 10/3/uL (0.0-0.16); EOSINOPHILS 1.2 %; EOSINOPHILS ABSOLUTE 0.09 10/3/uL (0.0-0.53); HEMATOCRIT 27.9 % (40.0-51.0); IMMATURE GRANULOCYTES 0.5 %; IMMATURE GRANULOCYTES ABSOLUTE 0.04 10/3/uL (0.0-0.11); LYMPHOCYTES 7.3 %; LYMPHOCYTES ABSOLUTE 0.57 10/3/uL (0.67-4.30); MEAN CORPUS HGB CONC 35.8 g/dL (32.0-36.0); MEAN CORPUSCULAR HEMOGLOB 32.1 pg (26.0-34.0); MEAN CORPUSCULAR VOLUME 89.4 fL (80-100); MEAN PLATELET VOLUME 10.9 fL (9.2-13.0); MONOCYTES 9.8 %; MONOCYTES ABSOLUTE 0.76 10/3/uL (0.21-1.20); NEUTROPHILS 81.1 %; NEUTROPHILS ABSOLUTE 6.32 10/3/uL (2.02-8.40); PLATELET COUNT 66 10/3/uL (150-400); RED CELL COUNT 3.12 10/6/uL (4.7-6.1); WHITE BLOOD CELLS 7.8 10/3/uL (4.5-10.5)
[2016-09-05 07:15] LABS: MANUAL DIFF NO %
[2016-09-05 07:23] LABS: INTERNATIONAL NORMAL RATI 1.3 UNITS (-); PROTIME (NOT ORD) 15.7 SEC (12.0-14.5)
[2016-09-05 07:33] LABS: BUN (BLOOD UREA NITROGEN) 13 MG/DL (6-23); CALCIUM, SERUM 8.2 MG/DL (8.5-10.4); CHLORIDE, SERUM 111 MMOL/L (96-112); CO2 (CARBON DIOXIDE) 25 MMOL/L (24-34); CREATININE 0.95 MG/DL (0.70-1.30); GFR AFRICAN AMERICAN 90 ML/MIN (>=60); GFR NON AFRICAN AMERICAN 77 ML/MIN (>=60); GLUCOSE, SERUM 96 MG/DL (60-99); POTASSIUM, SERUM 3.9 MMOL/L (3.5-5.3); SODIUM, SERUM 141 MMOL/L (135-148)
[2016-09-05 07:50] LABS: HELMET CELLS OCC (0-2/OIF); PLATELET ESTIMATE DEC (ADEQUATE); POLYCHROMASIA 1+ (2-5/OIF) (0-1/OIF); TARGET CELLS OCC (1-2/OIF) (0-1/OIF); TEARDROP SHAPED RBCS OCC (0-2/OIF)
[2016-09-06 04:55] LABS: BASOPHILS 0 %; EOSINOPHILS 0.8 %; EOSINOPHILS ABSOLUTE 0.05 10/3/uL (0.0-0.53); HEMATOCRIT 28.8 % (40.0-51.0); HEMOGLOBIN 10.2 g/dL (13.6-17.8); IMMATURE GRANULOCYTES 0.6 %; IMMATURE GRANULOCYTES ABSOLUTE 0.04 10/3/uL (0.0-0.11); LYMPHOCYTES ABSOLUTE 0.93 10/3/uL (0.67-4.30); MANUAL DIFF NO %; MEAN CORPUS HGB CONC 35.4 g/dL (32.0-36.0); MEAN CORPUSCULAR HEMOGLOB 32.1 pg (26.0-34.0); MEAN CORPUSCULAR VOLUME 90.6 fL (80-100); MEAN PLATELET VOLUME 12.1 fL (9.2-13.0); NEUTROPHILS 75.6 %; NEUTROPHILS ABSOLUTE 5.04 10/3/uL (2.02-8.40); PLATELET COUNT 72 10/3/uL (150-400); RBC DISTRIBUTION WIDTH 15.7 % (12.0-16.0); RED CELL COUNT 3.18 10/6/uL (4.7-6.1); WHITE BLOOD CELLS 6.7 10/3/uL (4.5-10.5)
[2016-09-06 05:12] LABS: A/G RATIO 0.8 (0.7-1.9); ALBUMIN 2.3 G/DL (3.5-5.0); ALKALINE PHOSPHATASE 72 U/L (45-117); BUN (BLOOD UREA NITROGEN) 18 MG/DL (6-23); CALCIUM, SERUM 8.3 MG/DL (8.5-10.4); CHLORIDE, SERUM 113 MMOL/L (96-112); CO2 (CARBON DIOXIDE) 25 MMOL/L (24-34); CREATININE 0.89 MG/DL (0.70-1.30); GFR AFRICAN AMERICAN 96 ML/MIN (>=60); GFR NON AFRICAN AMERICAN 83 ML/MIN (>=60); GLOBULIN 2.9 G/DL (2.5-4.1); GLUCOSE, SERUM 128 MG/DL (60-99); PHOSPHORUS, SERUM 2.4 MG/DL (2.5-4.5); POTASSIUM, SERUM 3.8 MMOL/L (3.5-5.3); PREALBUMIN 9.9 MG/DL (17.0-43.0); SGOT(AST) 31 U/L (5-40); SGPT(ALT) 14 U/L (5-65); SODIUM, SERUM 141 MMOL/L (135-148); TOTAL BILIRUBIN 0.4 MG/DL (0-1.2); TOTAL PROTEIN 5.2 G/DL (6.0-8.5); TRIGLYCERIDE 41 MG/DL (< 150)
[2016-09-06 05:13] LABS: PLATELET ESTIMATE DEC (ADEQUATE); TEARDROP SHAPED RBCS FEW (3-10/OIF)
[2016-09-07 05:48] LABS: BASOPHILS 0.1 %; BASOPHILS ABSOLUTE 0.01 10/3/uL (0.0-0.16); EOSINOPHILS ABSOLUTE 0.15 10/3/uL (0.0-0.53); HEMATOCRIT 30.2 % (40.0-51.0); HEMOGLOBIN 10.5 g/dL (13.6-17.8); IMMATURE GRANULOCYTES ABSOLUTE 0.15 10/3/uL (0.0-0.11); LYMPHOCYTES ABSOLUTE 0.61 10/3/uL (0.67-4.30); MEAN CORPUS HGB CONC 34.8 g/dL (32.0-36.0); MEAN CORPUSCULAR HEMOGLOB 31.5 pg (26.0-34.0); MEAN CORPUSCULAR VOLUME 90.7 fL (80-100); MEAN PLATELET VOLUME 12.1 fL (9.2-13.0); MONOCYTES 11.8 %; NEUTROPHILS 76.1 %; NEUTROPHILS ABSOLUTE 5.82 10/3/uL (2.02-8.40); PLATELET COUNT 91 10/3/uL (150-400); RBC DISTRIBUTION WIDTH 15.5 % (12.0-16.0); RED CELL COUNT 3.33 10/6/uL (4.7-6.1); WHITE BLOOD CELLS 7.6 10/3/uL (4.5-10.5)
[2016-09-07 05:53] LABS: MANUAL DIFF NO %
[2016-09-07 05:59] LABS: ALBUMIN 2.4 G/DL (3.5-5.0); BUN (BLOOD UREA NITROGEN) 26 MG/DL (6-23); CALCIUM, SERUM 8.6 MG/DL (8.5-10.4); CHLORIDE, SERUM 106 MMOL/L (96-112); CO2 (CARBON DIOXIDE) 23 MMOL/L (24-34); CREATININE 0.84 MG/DL (0.70-1.30); GFR AFRICAN AMERICAN 99 ML/MIN (>=60); GFR NON AFRICAN AMERICAN 85 ML/MIN (>=60); GLUCOSE, SERUM 110 MG/DL (60-99); PHOSPHORUS, SERUM 3.2 MG/DL (2.5-4.5); POTASSIUM, SERUM 4.5 MMOL/L (3.5-5.3); SODIUM, SERUM 137 MMOL/L (135-148); TRIGLYCERIDE 46 MG/DL (< 150)
[2016-09-08 05:58] LABS: HEMATOCRIT 31.6 % (40.0-51.0); HEMOGLOBIN 11.2 g/dL (13.6-17.8); MANUAL DIFF YES %; MEAN CORPUS HGB CONC 35.4 g/dL (32.0-36.0); MEAN CORPUSCULAR HEMOGLOB 31.9 pg (26.0-34.0); MEAN PLATELET VOLUME 11.8 fL (9.2-13.0); PLATELET COUNT 120 10/3/uL (150-400); RBC DISTRIBUTION WIDTH 15.8 % (12.0-16.0); RED CELL COUNT 3.51 10/6/uL (4.7-6.1); WHITE BLOOD CELLS 9.4 10/3/uL (4.5-10.5)
[2016-09-08 06:02] LABS: INTERNATIONAL NORMAL RATI 1.2 UNITS (-); PROTIME (NOT ORD) 14.9 SEC (12.0-14.5)
[2016-09-08 06:09] LABS: BUN (BLOOD UREA NITROGEN) 34 MG/DL (6-23); CALCIUM, SERUM 8.7 MG/DL (8.5-10.4); CHLORIDE, SERUM 107 MMOL/L (96-112); CO2 (CARBON DIOXIDE) 23 MMOL/L (24-34); CREATININE 0.88 MG/DL (0.70-1.30); GFR AFRICAN AMERICAN 97 ML/MIN (>=60); GFR NON AFRICAN AMERICAN 83 ML/MIN (>=60); GLUCOSE, SERUM 128 MG/DL (60-99); PHOSPHORUS, SERUM 2.7 MG/DL (2.5-4.5); POTASSIUM, SERUM 4.3 MMOL/L (3.5-5.3); SODIUM, SERUM 138 MMOL/L (135-148)
[2016-09-08 06:19] LABS: EOSINOPHILS 1 %; EOSINOPHILS ABSOLUTE (CALC) 0.09 10/3/uL (0.0-0.53); IMMATURE GRANS ABSOLUTE (CALC) 0.66 10/3/uL (0.0-0.11); LYMPHOCYTES 8 %; LYMPHOCYTES ABSOLUTE (CALC) 0.75 10/3/uL (0.67-4.30); METAMYELOCYTES 5 %; MONOCYTES 2 %; MONOCYTES ABSOLUTE (CALC) 0.19 10/3/uL (0.21-1.20); MYELOCYTES 2 %; NEUTROPHILS ABSOLUTE (CALC) 7.71 10/3/uL (2.02-8.40); PLATELET ESTIMATE SLT DEC (ADEQUATE); RBC MORPHOLOGY NORM (NORMAL); SEGMENTED NEUTROPHIL (0) 82 %; TOTAL NUCLEATED CELLS 100
[2016-09-09 06:09] LABS: BUN (BLOOD UREA NITROGEN) 34 MG/DL (6-23); CALCIUM, SERUM 8.6 MG/DL (8.5-10.4); CHLORIDE, SERUM 107 MMOL/L (96-112); CO2 (CARBON DIOXIDE) 25 MMOL/L (24-34); CREATININE 0.93 MG/DL (0.70-1.30); GFR AFRICAN AMERICAN 92 ML/MIN (>=60); GFR NON AFRICAN AMERICAN 79 ML/MIN (>=60); GLUCOSE, SERUM 125 MG/DL (60-99); PHOSPHORUS, SERUM 2.5 MG/DL (2.5-4.5); POTASSIUM, SERUM 4.1 MMOL/L (3.5-5.3); SODIUM, SERUM 138 MMOL/L (135-148)
[2016-11-03] MEDS ORDERED: SIN-CR PO (17:41)
[2016-11-03] MEDS ORDERED: PRILO PO (17:42)
[2016-11-03] MEDS ORDERED: AMIT10 PO (17:42)
[2016-11-03] MEDS ORDERED: ZOCOR10 PO (17:42)
[2016-11-03] MEDS ORDERED: LOP25 PO (17:42)
[2016-11-03] MEDS ORDERED: ENDOCET1 TAB PO (17:43)
[2016-11-03] MEDS ORDERED: L20 PO (17:43)
[2016-11-03] MEDS ORDERED: ASAB PO (17:43)
[2016-11-03] MEDS ORDERED: BIST PO (17:44)
[2016-11-03] MEDS ORDERED: CALTRAT600 PO (17:45)
[2016-11-03] MEDS ORDERED: CENTRUM PO (17:45)
[2016-11-03] MEDS ORDERED: IRON SUPPLEMENT PO (17:45)
[2016-11-03] MEDS ORDERED: VITAMIN D31000 UNIT PO (17:46)
[2016-11-03] MEDS ORDERED: ADVIL PO (17:47)
[2017-01-18] MEDS ORDERED: VITAMIN D400 UNI1 PO (09:44)
== END 2016-09-09 14:48 | DRG 314 ==
LOC: ER 15:15 → 6NO 17:54
PROVIDERS: Hospitalist; Internal Medicine; Internal Medicine Clinical Cardiac Electrophysiology; Surgery
PROC: 0JPT0XZ Removal of Tunneled Vascular Access Device from Trunk Subcutaneous Tissue and Fascia, Open Approach (ICD-10-PCS; principal; 2016-09-04 08:45)
PROC: 02HV33Z Insertion of Infusion Device into Superior Vena Cava, Percutaneous Approach (ICD-10-PCS; 2016-09-05)
PROC: 4A02X4A Measurement of Cardiac Electrical Activity, Guidance, External Approach (ICD-10-PCS; 2016-09-05)
PROC: 3E0436Z Introduction of Nutritional Substance into Central Vein, Percutaneous Approach (ICD-10-PCS; 2016-09-05)
DX: T80.211A Bloodstream infection due to central venous catheter, initial encounter (principal); A41.2 Sepsis due to unspecified staphylococcus; R65.21 Severe sepsis with septic shock; E43 Unspecified severe protein-calorie malnutrition; N17.9 Acute kidney failure, unspecified; I24.8 Other forms of acute ischemic heart disease; G20 Parkinson's disease; K31.84 Gastroparesis; I11.0 Hypertensive heart disease with heart failure; I50.22 Chronic systolic (congestive) heart failure; I25.10 Atherosclerotic heart disease of native coronary artery without angina pectoris; M54.9 Dorsalgia, unspecified; Z85.46 Personal history of malignant neoplasm of prostate; Z90.3 Acquired absence of stomach [part of]; Z85.028 Personal history of other malignant neoplasm of stomach; Z86.73 Personal history of transient ischemic attack (TIA), and cerebral infarction without residual deficits
CPT/HCPCS: 36569; 36600; 71010; 71250; 74000; 74176; 80048; 80053; 80069; 80076; 81001; 82272; 82330; 82533; 82805; 82962; 83605; 83735; 83880; 84100; 84134; 84145; 84443; 84478; 84484; 85025; 85610; 85730; 87015; 87040; 87070; 87075; 87077; 87086; 87102; 87116; 87150; 87186; 87205; 88300; 93005; 93306; 93971; 94640; 96365; 97110-GP; 97116-GP; 97162-GP; 99285; A9270-GY; C1751; G8978-CL-GP; G8979-CK-GP; G8980-CK-GP; J0690; J0692; J3010; J3370; P9047

== ENCOUNTER 2016-10-04 13:38 | Inpatient (IN) | payer MEDICARE, OTHER ==
--- NOTE | ~2016-10-04 | CN ---
Consultation Report [facility] [address] [place]. [address] NAME: TEODORO MCCLAIN : 40 STATUS : ADM IN PAT#: [id number] AGE: 76 ADM/REG DATE : 10/05/16 MR#: [id number] REPORT SERV DATE: 10/08/16 DICTATED BY: PATRICIA ESCALANTE III DATE: 10/08/16 REPORT STATUS : Draft TRANSCRIBED BY: MODL DATE: 10/08/16 CONSULTATION DATE OF CONSULTATION: 10/07/2016 REASON FOR CONSULT: 1. Chronic malnutrition. 2. Evaluation for jejunal feeding tube placement. HISTORY OF PRESENT ILLNESS: I am asked to see this 76-year-old male, who was hospitalized today for the above reasons. The patient has a previous history of proximal gastric cancer. The patient is status post proximal gastrectomy, with a near total gastrectomy, performed by Dr. Angel Jr., in 2012. The patient has had severe and intractable gastroparesis since that time. He has been unable to maintain adequate oral intake for nutrition since that time. He is able to tolerate small amounts of food, but not sufficient amount to maintain his weight and nutrition. For this reason, the patient has been on jejunal feedings or total parental nutrition since that time. The patient has had several jejunal feeding tubes in the past. These have been replaced on several occasions. He has problems related to extreme leakage around the feeding tubes with excoriation. At the time of his last jejunal feeding tube placement, he had severe postop complications consisting of ileus and GI bleeding and near . He had a prolonged hospitalization. Since that time, the patient has become progressively frail, weak, and immobile. This is in spite of being on TPN. We have been anticipating placing a new feeding tube, but because of the patient's progressive weakness and frailty and high risks and complications related to his previous surgery, this has been delayed. On this admission, the patient was admitted with altered mental status. His states that he took a Percocet and became essentially unresponsive. The patient is essentially bedridden. He is able to walk only with some help and barely can walk to the bathroom. He was recently at [facility] and he was discharged from there one week ago. He has been subsequently weak at home with increasing swelling and anasarca. He became confused for the last two nights. His states his Percocet may contribute to the confusion. The patient presented to the emergency room, and it was felt that admission to the hospital is indicated. The patient has had no nausea or vomiting. PAST MEDICAL HISTORY: Consultation Report [address] [place]. [address] NAME: TEODORO MCCLAIN : 40 STATUS : ADM IN [facility]#: [id number] AGE: 76 ADM/REG DATE : 10/05/16 MR#: [id number] REPORT SERV DATE: 10/08/16 DICTATED BY: PATRICIA ESCALANTE III DATE: 10/08/16 REPORT STATUS : Draft TRANSCRIBED BY: YVONNE DATE: 10/08/16 1. History of proximal gastrectomy for proximal gastric cancer, performed in 2012. The patient has had no evidence for malignancy since that time, but has had severe gastroparesis. 2. Hypertension. 3. Obstructive sleep apnea. 4. Coronary artery disease. 5. History of Guillain-Ibapah syndrome. 6. History of prostate cancer. 7. History of supraventricular tachycardia. 8. History of cerebral aneurysm x2 with surgery. 9. History of colitis. MEDICATIONS: Aspirin, Dulcolax, calcium, Sinemet, Percocet, metoprolol, omeprazole, and simvastatin. SOCIAL HISTORY: The patient is and lives locally. He is retired. FAMILY HISTORY: Remarkable for lymphoma. REVIEW OF SYSTEMS: The patient is very weak chronically. He has no specific complaints. He has been somewhat lethargic according to his . PHYSICAL EXAMINATION: GENERAL: This is a chronically ill-appearing male, in no acute distress. He appears frail and chronically ill and is in bed. VITAL SIGNS: Blood pressure 134/76, temperature 98.1, and pulse 104. HEENT: Unremarkable. Cranial nerves 2 through 12 are normal. LUNGS: Clear. CARDIAC: Normal. ABDOMEN: Soft. Nontender. EXTREMITIES: Unremarkable. LABORATORY DATA: Electrolytes unremarkable. Albumin is low at 2.2 on 09/27/2016. Hematocrit 27, WBC 7.6. ASSESSMENT: 1. 76-year-old male with chronic severe gastroparesis, life-threatening, related to previous proximal gastrectomy. 2. History of gastric cancer in the past, status post proximal gastrectomy in 2012. 3. Chronic malnutrition and hypoalbuminemia related #1. 4. History of several jejunal feeding tube placements with need for removal due to leakage around the feeding tubes. 5. 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 6. History of cerebral aneurysm. Consultation Report [address] [place]. [address] NAME: TEODORO MCCLAIN : 40 STATUS : ADM IN PAT#: [id number] AGE: 76 ADM/REG DATE : 10/05/16 MR#: [id number] REPORT SERV DATE: 10/08/16 DICTATED BY: PATRICIA ESCALANTE III DATE: 10/08/16 REPORT STATUS : Draft TRANSCRIBED BY: MODJovan DATE: 10/08/16 7. Severe deconditioning. 8. History of prostate cancer. 9. Hypertension. 10.Guillain-Ibapah syndrome. 11.Obstructive sleep apnea. PLAN: I believe the patient is at high risk for jejunal feeding tube placement. He has a hostile abdomen and had dense adhesions at the time of his previous surgery. His previous surgery for feeding tube placement was extremely prolonged and complicated and nearly resulted in fatality. I believe the patient will need to remain on TPN and definitely or until his condition improves. The patient is barely able to walk from his bed to the bathroom at this time and only with assistance. I feel that again the risk for surgical intervention is extremely high in this setting. I believe he will need to remain on TPN indefinitely unless his condition changes. I have discussed this with the patient and his . Their questions have been answered. They understand and agree to this as planned. RHJ/YVONNE Patricia Escalante III, M.D. / [id number] CC: Abhilash Muro M.D.
--- NOTE | ~2016-10-04 | IDS ---
Interim Discharge Summary [facility] [address] [facility] [place]. [address] NAME: TEODORO MCCLAIN : 40 STATUS : ADM IN [facility]#: [id number] AGE: 76 ADM/REG DATE : 10/05/16 MR#: [id number] REPORT SERV DATE: 10/09/16 DICTATED BY: Juanita RAI DATE: 10/08/16 REPORT STATUS : Draft TRANSCRIBED BY: MODL DATE: 10/08/16 ADMISSION DATE: 10/05/2016 DISCHARGE DATE: CURRENT INTERIM DIAGNOSES: 1. Acute metabolic encephalopathy, resolved. 2. Anasarca. 3. Chronic diastolic and systolic heart failure. 4. Severe gastroparesis, status post partial gastrectomy for cancer. 5. Severe protein Kcal malnutrition. 6. Elevated liver function. 7. General debility. 8. Chronic anemia. 9. Parkinson's disease. IMAGING AND DIAGNOSTICS: 1. CT of the brain on 10/04/2016 in the emergency room showed no acute infarct or hemorrhage. Stable moderate atrophy and chronic white matter gliosis. 2. CT of the abdomen and pelvis in the emergency room on 10/04/2016 showed no bowel obstruction or bowel wall inflammation. New infiltrate, right lung base, that may represent atelectasis or pneumonia. No mass lesion, adenopathy, or acute inflammatory process within the abdomen or pelvis. 3. Chest x-ray on 10/04/2016 showed interstitial fibrosis, persistent elevation of the right diaphragm with right basilar atelectasis with additional atelectasis and scarring at the left lung base. Multiple calcified nodules in the right lung are stable. Surgical clips at the right lung apex. No pneumothorax or significant pleural effusions are present. Stable chest x-ray. 4. 10/04/2016, venous duplex of the left upper extremity for edema showed no evidence of clot in the left upper extremity. HISTORY OF PRESENT ILLNESS: For complete history, please refer to admission H and P by Dr. Maxwell on 10/04/2016. Briefly, Mr. Mcclain is a pleasant 76-year-old gentleman with a long and complicated past medical history, who is followed by Dr. Jacques Durbin on an outpatient basis. He was recently hospitalized from 09/02/2016 through 09/08/2016 for sepsis with an infected Port-A-Cath. He has had a proximal gastrectomy for gastric cancer and now suffers with severe gastroparesis with malnutrition and has been chronically on TPN for several months. He presented to the emergency room this time with altered mental status and anasarca. His stated that after his admission here in August, he went to [facility] and was at [facility] to a shy of three weeks when he was discharged home. For the past week, she has been hanging his TPN at home, which has been nocturnal for approximately 12 to 14 hours. The patient's and Home Health nurse called Dr. Durbin' office on the day of his admission because he had some confusion and increased swelling in his abdomen and extremities. Initially, the patient's stated that Dr. Durbin' office was to send over admission orders; however, there was some confusion and the admission orders from Interim Discharge Summary [address] [place]. [address] NAME: TEODORO MCCLAIN : 40 STATUS : ADM IN [facility]#: [id number] AGE: 76 ADM/REG DATE : 10/05/16 MR#: [id number] REPORT SERV DATE: 10/09/16 DICTATED BY: Juanita RAI DATE: 10/08/16 REPORT STATUS : Draft TRANSCRIBED BY: YVONNE DATE: 10/08/16 Ramakrishna' office never arrived, and the Hospitalist Service was asked to admit the patient for further evaluation and treatment. HOSPITAL COURSE: Mr. Mcclain was initially admitted to the CDU. When I saw the patient, he was confused. He could not recall where he was; however, he was alert and can tell me the date and his name. Initially, he thought he was in [facility] and he said he was in [place], [place]. He was sitting up in bed, eating potato chips, and his was at the bedside. He had no bowel movement for at least five days prior to admission. He had pitting edema 2 to 3+ in his lower extremities as well as pitting edema in his left arm. His liver function tests were altered and elevated. His ammonia level was 49. On this date, his prealbumin was 6.7 and his procalcitonin was 0.20 on this date. With his confusion and elevated ammonia, I gave him a dose of lactulose. I placed a consult to pharmacy for TPN and awaited Dr. Durbin' evaluation. On 10/06/2016, he was transferred out of the CVU to [address] [place] [address] Durbin did not see the patient. Therefore, I wrote a consult for Dr. Durbin to come, see the patient and a pharmacy consult again for TPN. He did receive another dose of lactulose the following day and his ammonia level decreased to 29. He has been given albumin and IV Lasix three days in a row. He has had good response and tremendous decrease in his peripheral edema as well as edema around his abdomen. Dorothycorinne was consulted at the request of the patient's . She did not want him to return to [facility] for rehab at the time of discharge; however, if [facility] was not going to accept the patient, she wanted to take her home with Home Healthcare. His liver functions have still not returned to normal; however, they are trending down. Today, he did receive more albumin for the third day in a row followed by Lasix IV and I will start him on Lasix 20 mg p.o. daily on 10/09/2016. He is receiving TPN currently. His acute encephalopathy has resolved and he is at his baseline mental status. DISPOSITION: Current disposition is for the patient to return home at the time of discharge with Home Healthcare, Nursing, Physical Therapy, and Occupational Therapy, and TPN as Dr. Durbin stated that TPN is currently indefinite, and he has no plans to place a J tube in the near future. DICTATED BY: SENA Wilcox-BC MANFRED/MODL Juanita Rai M.D. / [id number] CC: Abhilash Muro M.D.
--- NOTE | ~2016-10-04 | DS ---
Discharge Summary [facility] [address] [place]. [address] NAME: TEODORO MCCLAIN : 40 STATUS : DIS IN PAT#: [id number] AGE: 76 ADM/REG DATE : 10/05/16 MR#: [id number] REPORT SERV DATE: 10/10/16 DICTATED BY: SHIRA CASAS DATE: 10/10/16 REPORT STATUS : Draft TRANSCRIBED BY: MODL DATE: 10/10/16 ADMISSION DATE: 10/05/2016 DISCHARGE DATE: 10/10/2016 More than 30 minutes in total were spent on this discharge. DISCHARGE DIAGNOSES: Include: 1. Acute metabolic encephalopathy, resolved. 2. Anasarca, improved. 3. Severe protein malnutrition, on chronic TPN and requiring chronic TPN. 4. Severe gastroparesis. 5. Anemia of chronic disease. 6. Chronic systolic and diastolic heart failure with ejection fraction of 45%. 7. Parkinson disease. DISPOSITION: The patient will be discharged home in excellent condition to follow up on 10/28/2016, with Dr. Jacques Durbin and Dr. Shira Govea. Note for possible and definite need for TPN. DISCHARGE MEDICATIONS: Include aspirin 81 mg daily, Citracal once daily, Sinemet 25/100 t.i.d., vitamin D 2000 international units daily, ferrous sulfate 300 mg daily, Lasix 20 mg daily, metoprolol tartrate 12.5 mg daily, omeprazole 20 mg daily, simvastatin 10 mg daily, multivitamin daily, TPN daily. LABORATORY DATA: Pertinent testing during hospitalization included discharge white blood count 10.5, hemoglobin 8.9, platelets 205. Sodium 142, potassium 3.9, chloride 109, bicarb 24, BUN and creatinine 37 and 0.81, glucose of 93, triglyceride level 56, ionized calcium level of 5.1. A portable chest x-ray showing right-sided atelectasis. Ammonia level 35. BNP level 107. Albumin 3.1, alkaline phosphatase 372, ALT 126, AST 89. CT of the abdomen and pelvis showing atelectasis of the right lung base, but was otherwise unremarkable. CT of the brain without contrast, negative for acute infarct showing moderate atrophy. HOSPITAL COURSE: Mr. Mcclain is a 76-year-old white gentleman, who presented to the emergency room with complaints of confusion and dehydration. He was admitted to [facility], and it was felt that at least some of his encephalopathy was due to recent Percocet intake. It was noted that his hepatitis was likely due to hepatic steatosis from TPN. His anemia was stable. He was monitored for several days. He did quite well and at this point, is in excellent condition, and will be discharged home. DICTATED BY: Shira Casas M.D. DD/ROBINL Discharge Summary [address] [address] NAME: TEODORO MCCLAIN : 40 STATUS : DIS IN PAT#: [id number] AGE: 76 ADM/REG DATE : 10/05/16 MR#: [id number] REPORT SERV DATE: 10/10/16 DICTATED BY: SHIRA CASAS DATE: 10/10/16 REPORT STATUS : Draft TRANSCRIBED BY: MODJovan DATE: 10/10/16 Shira Casas M.D. / [id number] CC: Abhilash Guevara M.D. Richard Hunter Jennings III, M.D.
--- NOTE | ~2016-10-04 | HP ---
History And Physical [address] [place]. [address] NAME: TEODORO MCCLAIN : 40 STATUS : ADM Aldo PAT#: [id number] AGE: 76 ADM/REG DATE : 10/04/16 MR#: [id number] REPORT SERV DATE: 10/04/16 DICTATED BY: SHIRA JIMENEZ DATE: 10/04/16 REPORT STATUS : Draft TRANSCRIBED BY: MODL DATE: 10/04/16 DATE OF ADMISSION: 10/04/2016 REASON FOR ADMISSION: Altered mental status after Percocet and anasarca. HISTORY OF PRESENT ILLNESS: This is a 76-year-old white male, who has been followed by Dr. Jacques Durbin in the past. He has esophageal cancer. Much of his stomach was removed or pulled through the esophagus, and the patient has had problems with eating and malnutrition for a long period of time. He had a Port-A-Cath that was removed after septic episode and the patient was hospitalized from 09/02/2016 to 09/08/2016 because of this. He went to [facility] and was rehabilitated where he could stand and walk a few steps to the bedside commode or the bathroom and subsequently has been weak at home since that time. He had an increasing swelling and anasarca. He was confused 2 nights in a row. His says he did take a Percocet at nighttime that may have contributed to the confusion as well. The patient is somewhat withdrawn but does answer questions and is oriented to place and time. called Dr. Durbin' nurse earlier today and was directed to come to the emergency room for direct admission. From the emergency room, no orders were found for direct admission. Hospitalists were consulted for possible admission by Dr. Driver. Dr. Driver left at 3 p.m., however, the patient was not notified for admission for until 3:27 p.m. History was obtained from his mostly. The patient is going to be admitted to observation to see if the Percocet wears off. There is no other appreciable anticipation of medical care can be added. It is after cutoff type for TPN therefore, the patient's nocturnal TPN may be omitted tonight as well. PAST MEDICAL HISTORY: He had a gastrojejunostomy in the past with a trach got infected. He has a history of gastroesophageal cancer with proximal gastrectomy that was done. He does have severe gastroparesis and has very little stomach left according to Dr. Durbin' discussion with me. He has malnutrition, his is albumin is 2.3 in the emergency room here today. His liver tests were slightly elevated. He takes multiple feedings per day. 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 He has history of prostate cancer and generalized weakness. He had a clavicular fracture, history of cholelithiasis, diverticulosis, elevation of the right hemidiaphragm, supraventricular tachycardia, history of cerebral aneurysm x2 with surgery, history of cryptococcal infection with possible pneumonia in the past, history of pulmonary nodules followed since 2002, history of mitral valve replacement, compression fracture, nephrolithiasis, and history of colitis in the past. He has a history of parkinsonism but no Parkinson's disease in the past. HOME MEDICATIONS: Listed as follows: Aspirin 81 mg p.o. daily, Dulcolax 5 mg p.o. daily as needed, calcium citrate and vitamin D every morning, Sinemet 25/100 one tablet three times History And Physical [address] [address] NAME: TEODORO MCCLAIN : 40 STATUS : ADM Aldo PAT#: [id number] AGE: 76 ADM/REG DATE : 10/04/16 MR#: [id number] REPORT SERV DATE: 10/04/16 DICTATED BY: SHIRA JIMENEZ DATE: 10/04/16 REPORT STATUS : Draft TRANSCRIBED BY: YVONNE DATE: 10/04/16 daily, vitamin D3 of 2000 units p.o. every morning, metoprolol 25 mg a half tablet p.o. daily, multivitamins one a day, omeprazole 20 mg p.o. daily, simvastatin 10 mg at bedtime, and iron 240 mg at bedtime. SOCIAL HISTORY: He quit smoking remotely. He is , lives with his Ms. Mcclain who takes care of him. They have a son who helps get him out of bed some time. He retired from [employer]. No alcohol or illicit drugs. They live in [place], [place]. FAMILY HISTORY: His mother had stroke. Father had Hodgkin's lymphoma by prior history. REVIEW OF SYSTEMS: The patient does not have any specific complaints. There is a slight amount of pain in the right upper quadrant. No shortness of breath. No cough. No chest pain. He does have swelling all over. No fever, chills, or night sweats. says his mentation is dulled and limited. He had been confused but he had taken a Percocet the night before. Otherwise review of systems is negative. PHYSICAL EXAMINATION: VITAL SIGNS: Blood pressure was 120/75 with a heart rate of 100, respiratory rate 18, afebrile. HEENT: EOMI. Sclerae clear. Conjunctivae pink. NECK: No bruit without any JVD. CHEST: Clear anterior and laterally. HEART: Regular S1, S2 without murmur, gallop, or click. Rapid. ABDOMEN: Soft, tender right upper quadrant. Bowel sounds are positive. Multiple scars in the abdomen are noted. EXTREMITIES: Have 4+ pitting edema bilaterally. His upper extremities have edema as well. His in file operator is equal symmetric. Coordination is intact. He is somewhat sedated and dull sensation. His movement of his upper extremities is at least 3/5. He appears to be symmetric and equal neurologically though subdued and not able to complete cooperative examination. LYMPHATICS: None are seen. SKIN: There is PICC line in the right antecubital fossa. He has a waxy appearance of his skin with subcutaneous edema. LABORATORY DATA: CT scan of the abdomen shows no obstruction. Ultrasound of the upper extremity showed no evidence of clot. In the left upper extremity, the site of the PICC line. CT scan of his abdomen and pelvis was done that showed no bowel obstruction or bowel wall inflammation. There is new infiltrate at the right base that may represent atelectasis or pneumonia but no mass, lesions, adenopathy, or inflammatory process is seen within the pelvis. CT scan of the brain showed deep white matter disease only and no evidence of acute stroke and no bleed. His CMP showed a sodium 142, potassium 4.1, creatinine 0.7, BUN 27, the albumin was 2.4, globulin was slightly elevated at 4.4. His alkaline phosphatase was high at 456, AST 264, troponin of 0.05, and a PT of 61. His white count was 10,000, hemoglobin 9.5, hematocrit 27.7, platelets were 205. The PTT was 34. INR 1.3. Surgical fungal cultures were negative for growth at 4 weeks. History And Physical [address] [address] NAME: TEODORO MCCLAIN : 40 STATUS : ADM Aldo PAT#: [id number] AGE: 76 ADM/REG DATE : 10/04/16 MR#: [id number] REPORT SERV DATE: 10/04/16 DICTATED BY: SHIRA JIMENEZ DATE: 10/04/16 REPORT STATUS : Draft TRANSCRIBED BY: MODL DATE: 10/04/16 Review of the alkaline phosphatase shows that the patient has had a remarkable increase in alkaline phosphatase from 83, 69, and 72 on the 09/03/2016, 09/04/2016, 09/05/2016 to 09/27/2016 of 246 and now 456. On 09/27/2016 prealbumin was 7.4. ASSESSMENT: 1. Encephalopathy likely induced by the Percocet. However, with liver test elevating we will check ammonia level as well. I am going to admit him to the observation unit where we may see the effects of Percocet wear off and see if his altered mental status returns to baseline. 2. Protein calorie malnutrition. His albumin is 2.3. At this point, we will recheck the prealbumin as it was 7.4 on 09/27/2016 to see if he is improving or losing ground. 3. Anasarca likely secondary to the added volume of the TPN that he is getting overnight. He gets TPN running at 110 an hour overnight for 14 hours including lipids. It is too late in the day to have this ordered today and will skip it tonight especially the elevation of liver function test. 4. Hepatitis likely due to hepatic steatosis from the TPN that he is getting. We will skip the TPN tonight and recheck. 5. General frailty. Dr. Durbin elected to place a PEG tube at this point because of his previous experience with sepsis and infection from this. 6. Recent septicemia, Staph epidermidis. Discharged on 14 days of IV cefazolin by Dr. Bolden. We will draw blood cultures to see if this may be a persistent problem and consider therapy should they turn positive. 7. Anemia likely chronic. 8. Improving albumin on the TPN rising from 1.8 on 09/24/2016 to 2 on 09/27/2016 and now 2.3. 9. Remote history of Guillain-Montezuma syndrome, may contribute to the weakness as well. 10.History of transient ischemic attacks. 11.Atherosclerotic cardiovascular disease with history of coronary artery bypass grafting. 12.Prostate cancer. 13.Remote history of low ejection fraction congestive heart failure. PLAN: The patient is frail and sick generally. has not received any advanced directives and speaking to her about these and advance directives wants him to be a full code. I explained that this may result in even lower level in present functioning and nursing and dependency. I discussed this with Dr. Durbin as well who believes the patient's frail and failing. Further considerations for end of life care need to be discussed and options given to and the patient. I am going to admit to the observation unit. If he does well with staying off the Percocet and these other supplemental diagnostic tests, he may be able to go home in the morning. We will check for hepatic encephalopathy with an ammonia level. We will check for sepsis with blood cultures to see if this may be a recurrent problem. Physical therapy to help, the patient to get started walking or transferring back to the bedside commode will be requested. If no other availability of treatments in the hospital, the patient may be discharged home for 's care at home tomorrow and resume the TPN when she gets home or alter the way that is being given. Dr. Durbin said he would see him. Dr. Durbin has been managing the TPN at home and I believe consideration for the elevation of liver test History And Physical [address] [address] NAME: TEODORO MCCLAIN : 40 STATUS : ADM Aldo PAT#: [id number] AGE: 76 ADM/REG DATE : 10/04/16 MR#: [id number] REPORT SERV DATE: 10/04/16 DICTATED BY: SHIRA JIMENEZ DATE: 10/04/16 REPORT STATUS : Draft TRANSCRIBED BY: MODL DATE: 10/04/16 and the TPN may need some modification of that dosing. DB/MODL Shira Jimenez M.D. / [id number] CC: Jalil Bolden MD
--- NOTE | ~2016-10-04 | IDS ---
Interim Discharge Summary [id number] [place] [address] NAME: TEODORO MCCLAIN : 40 STATUS : ADM IN PAT#: [id number] AGE: 76 ADM/REG DATE : 10/05/16 MR#: [id number] REPORT SERV DATE: 10/08/16 DICTATED BY: Juanita RAI DATE: 10/08/16 REPORT STATUS : Draft TRANSCRIBED BY: MODL DATE: 10/08/16 ADMISSION DATE: 10/05/2016 DISCHARGE DATE: CURRENT DIAGNOSES: 1. Acute metabolic encephalopathy, resolved. 2. Anasarca. 3. Severe gastroparesis, status post partial gastrectomy for cancer. 4. Severe protein-calorie malnutrition. 5. Chronic diastolic and systolic heart failure. 6. General debility. 7. Elevated liver function tests. 8. Chronic anemia. 9. Parkinson. IMAGING AND DIAGNOSTICS: 1. On 10/04/2016, CT of the brain without contrast revealed no acute infarct or hemorrhage, stable moderate atrophy and chronic white matter gliosis. 2. On 10/04/2016, CT of the abdomen and pelvis, no bowel obstruction or bowel wall inflammation. DICTATION ENDS HERE DICTATED BY: ARACELI WilcoxP-BC MANFRED/YVONNE Juanita Rai M.D. / [id number] CC: Abhilash Muro M.D.
[~2016-10-04 13:38] MED LIST changes: +SIN25 PO
[2016-10-04 14:18] LABS: BASOPHILS 0.1 %; BASOPHILS ABSOLUTE 0.01 10/3/uL (0.0-0.16); EOSINOPHILS 1.8 %; EOSINOPHILS ABSOLUTE 0.19 10/3/uL (0.0-0.53); HEMATOCRIT 27.7 % (40.0-51.0); HEMOGLOBIN 9.5 g/dL (13.6-17.8); IMMATURE GRANULOCYTES 1.2 %; IMMATURE GRANULOCYTES ABSOLUTE 0.12 10/3/uL (0.0-0.11); LYMPHOCYTES 7.3 %; LYMPHOCYTES ABSOLUTE 0.75 10/3/uL (0.67-4.30); MEAN CORPUS HGB CONC 34.3 g/dL (32.0-36.0); MEAN CORPUSCULAR VOLUME 90.5 fL (80-100); MEAN PLATELET VOLUME 11.9 fL (9.2-13.0); MONOCYTES 15.9 %; MONOCYTES ABSOLUTE 1.63 10/3/uL (0.21-1.20); NEUTROPHILS 73.7 %; NEUTROPHILS ABSOLUTE 7.58 10/3/uL (2.02-8.40); PLATELET COUNT 205 10/3/uL (150-400); RED CELL COUNT 3.06 10/6/uL (4.7-6.1); WHITE BLOOD CELLS 10.3 10/3/uL (4.5-10.5)
[2016-10-04 14:20] LABS: MANUAL DIFF NO %
[2016-10-04 14:30] LABS: INTERNATIONAL NORMAL RATI 1.3 UNITS (-); PARTIAL THROMBO TIME 35.4 SEC (22.5-37.2); PROTIME (NOT ORD) 15.9 SEC (12.0-14.5)
[2016-10-04 14:36] LABS: A/G RATIO 0.5 (0.7-1.9); ALBUMIN 2.3 G/DL (3.5-5.0); CALCIUM, SERUM 8.9 MG/DL (8.5-10.4); CHLORIDE, SERUM 110 MMOL/L (96-112); CO2 (CARBON DIOXIDE) 26 MMOL/L (24-34); GFR AFRICAN AMERICAN 106 ML/MIN (>=60); GFR NON AFRICAN AMERICAN 92 ML/MIN (>=60); GLOBULIN 4.4 G/DL (2.5-4.1); GLUCOSE, SERUM 90 MG/DL (60-99); POTASSIUM, SERUM 4.1 MMOL/L (3.5-5.3); SGOT(AST) 264 U/L (5-40); SGPT(ALT) 61 U/L (5-65); SODIUM, SERUM 142 MMOL/L (135-148); TOTAL BILIRUBIN 0.8 MG/DL (0-1.2); TOTAL PROTEIN 6.7 G/DL (6.0-8.5)
[2016-10-04 14:37] LABS: ALKALINE PHOSPHATASE 456 U/L (45-117); BUN (BLOOD UREA NITROGEN) 27 MG/DL (6-23)
[2016-10-04 14:38] LABS: TROPONIN I 0.05 NG/ML (<0.05)
[2016-10-04 18:12] LABS: PREALBUMIN 7.3 MG/DL (17.0-43.0)
[2016-10-05 06:28] LABS: A/G RATIO 0.6 (0.7-1.9); ALBUMIN 2.2 G/DL (3.5-5.0); CALCIUM, SERUM 9.2 MG/DL (8.5-10.4); CHLORIDE, SERUM 106 MMOL/L (96-112); CO2 (CARBON DIOXIDE) 26 MMOL/L (24-34); CREATININE 0.82 MG/DL (0.70-1.30); GFR AFRICAN AMERICAN 100 ML/MIN (>=60); GFR NON AFRICAN AMERICAN 86 ML/MIN (>=60); GLUCOSE, SERUM 88 MG/DL (60-99); POTASSIUM, SERUM 3.8 MMOL/L (3.5-5.3); PREALBUMIN 6.7 MG/DL (17.0-43.0); SGOT(AST) 203 U/L (5-40); SGPT(ALT) 139 U/L (5-65); SODIUM, SERUM 138 MMOL/L (135-148); TOTAL BILIRUBIN 0.8 MG/DL (0-1.2); TOTAL PROTEIN 6.2 G/DL (6.0-8.5)
[2016-10-05 06:29] LABS: ALKALINE PHOSPHATASE 428 U/L (45-117); BUN (BLOOD UREA NITROGEN) 21 MG/DL (6-23)
[2016-10-06 05:47] LABS: BASOPHILS 0.1 %; BASOPHILS ABSOLUTE 0.01 10/3/uL (0.0-0.16); EOSINOPHILS 2.6 %; EOSINOPHILS ABSOLUTE 0.18 10/3/uL (0.0-0.53); HEMATOCRIT 26.3 % (40.0-51.0); HEMOGLOBIN 8.7 g/dL (13.6-17.8); IMMATURE GRANULOCYTES 1.6 %; IMMATURE GRANULOCYTES ABSOLUTE 0.11 10/3/uL (0.0-0.11); LYMPHOCYTES 12.6 %; LYMPHOCYTES ABSOLUTE 0.88 10/3/uL (0.67-4.30); MANUAL DIFF NO %; MEAN CORPUS HGB CONC 33.1 g/dL (32.0-36.0); MEAN CORPUSCULAR HEMOGLOB 29.5 pg (26.0-34.0); MEAN CORPUSCULAR VOLUME 89.2 fL (80-100); MEAN PLATELET VOLUME 11.3 fL (9.2-13.0); MONOCYTES 16.6 %; MONOCYTES ABSOLUTE 1.16 10/3/uL (0.21-1.20); NEUTROPHILS 66.5 %; NEUTROPHILS ABSOLUTE 4.64 10/3/uL (2.02-8.40); NUCLEATED RED BLOOD CELLS 0.4 /100WBC (0-0); PLATELET COUNT 204 10/3/uL (150-400); RBC DISTRIBUTION WIDTH 16.8 % (12.0-16.0); RED CELL COUNT 2.95 10/6/uL (4.7-6.1)
[2016-10-06 06:07] LABS: A/G RATIO 0.5 (0.7-1.9); ALBUMIN 2.1 G/DL (3.5-5.0); BUN (BLOOD UREA NITROGEN) 20 MG/DL (6-23); CHLORIDE, SERUM 104 MMOL/L (96-112); CO2 (CARBON DIOXIDE) 27 MMOL/L (24-34); CREATININE 0.86 MG/DL (0.70-1.30); GFR AFRICAN AMERICAN 98 ML/MIN (>=60); GFR NON AFRICAN AMERICAN 84 ML/MIN (>=60); GLOBULIN 4.2 G/DL (2.5-4.1); GLUCOSE, SERUM 93 MG/DL (60-99); PHOSPHORUS, SERUM 2.9 MG/DL (2.5-4.5); POTASSIUM, SERUM 3.8 MMOL/L (3.5-5.3); SGOT(AST) 162 U/L (5-40); SGPT(ALT) 106 U/L (5-65); SODIUM, SERUM 138 MMOL/L (135-148); TOTAL BILIRUBIN 0.7 MG/DL (0-1.2); TOTAL PROTEIN 6.3 G/DL (6.0-8.5)
[2016-10-06 06:09] LABS: ALKALINE PHOSPHATASE 442 U/L (45-117)
[2016-10-06 06:10] LABS: ACETAMINOPHEN LEVEL (TYLENOL) < 2.0 MCG/ML (10.0-20.0)
[2016-10-07 06:26] LABS: BASOPHILS 0.1 %; BASOPHILS ABSOLUTE 0.01 10/3/uL (0.0-0.16); EOSINOPHILS 2.6 %; HEMATOCRIT 27.3 % (40.0-51.0); HEMOGLOBIN 9.2 g/dL (13.6-17.8); IMMATURE GRANULOCYTES 0.9 %; IMMATURE GRANULOCYTES ABSOLUTE 0.07 10/3/uL (0.0-0.11); LYMPHOCYTES 9.5 %; LYMPHOCYTES ABSOLUTE 0.72 10/3/uL (0.67-4.30); MEAN CORPUS HGB CONC 33.7 g/dL (32.0-36.0); MEAN CORPUSCULAR HEMOGLOB 30.1 pg (26.0-34.0); MEAN CORPUSCULAR VOLUME 89.2 fL (80-100); MEAN PLATELET VOLUME 11.9 fL (9.2-13.0); MONOCYTES 19.5 %; MONOCYTES ABSOLUTE 1.48 10/3/uL (0.21-1.20); NEUTROPHILS 67.4 %; NEUTROPHILS ABSOLUTE 5.11 10/3/uL (2.02-8.40); PLATELET COUNT 223 10/3/uL (150-400); RBC DISTRIBUTION WIDTH 16.8 % (12.0-16.0); RED CELL COUNT 3.06 10/6/uL (4.7-6.1); WHITE BLOOD CELLS 7.6 10/3/uL (4.5-10.5)
[2016-10-07 06:28] LABS: MANUAL DIFF NO %
[2016-10-07 06:37] LABS: A/G RATIO 0.7 (0.7-1.9); ALKALINE PHOSPHATASE 450 U/L (45-117); BUN (BLOOD UREA NITROGEN) 20 MG/DL (6-23); CALCIUM, SERUM 9.5 MG/DL (8.5-10.4); CHLORIDE, SERUM 103 MMOL/L (96-112); CO2 (CARBON DIOXIDE) 26 MMOL/L (24-34); CREATININE 0.91 MG/DL (0.70-1.30); GFR AFRICAN AMERICAN 95 ML/MIN (>=60); GFR NON AFRICAN AMERICAN 82 ML/MIN (>=60); GLOBULIN 4.1 G/DL (2.5-4.1); GLUCOSE, SERUM 103 MG/DL (60-99); PHOSPHORUS, SERUM 2.4 MG/DL (2.5-4.5); POTASSIUM, SERUM 3.8 MMOL/L (3.5-5.3); SGOT(AST) 125 U/L (5-40); SGPT(ALT) 76 U/L (5-65); SODIUM, SERUM 138 MMOL/L (135-148); TOTAL PROTEIN 7.1 G/DL (6.0-8.5); TRIGLYCERIDE 59 MG/DL (< 150)
[2016-10-07 07:44] LABS: PREALBUMIN 8.5 MG/DL (17.0-43.0)
[2016-10-08 06:54] LABS: CALCIUM, SERUM 9.3 MG/DL (8.5-10.4); CHLORIDE, SERUM 105 MMOL/L (96-112); CO2 (CARBON DIOXIDE) 25 MMOL/L (24-34); CREATININE 0.87 MG/DL (0.70-1.30); GFR AFRICAN AMERICAN 97 ML/MIN (>=60); GFR NON AFRICAN AMERICAN 84 ML/MIN (>=60); GLUCOSE, SERUM 97 MG/DL (60-99); PHOSPHORUS, SERUM 2.5 MG/DL (2.5-4.5); POTASSIUM, SERUM 4.1 MMOL/L (3.5-5.3); SODIUM, SERUM 137 MMOL/L (135-148)
[2016-10-08 06:55] LABS: BUN (BLOOD UREA NITROGEN) 30 MG/DL (6-23)
[2016-10-08 14:03] LABS: ALBUMIN 3.1 G/DL (3.5-5.0); ALKALINE PHOSPHATASE 372 U/L (45-117); DIRECT BILIRUBIN 0.2 MG/DL (0.0-0.4); INDIRECT BILIRUBIN(NOT ORDER) 0.3 MG/DL (0.1-0.9); SGOT(AST) 89 U/L (5-40); SGPT(ALT) 126 U/L (5-65); TOTAL BILIRUBIN 0.5 MG/DL (0-1.2)
[2016-10-09 04:30] LABS: BASOPHILS 0.1 %; BASOPHILS ABSOLUTE 0.01 10/3/uL (0.0-0.16); EOSINOPHILS 3.9 %; EOSINOPHILS ABSOLUTE 0.37 10/3/uL (0.0-0.53); HEMATOCRIT 25.8 % (40.0-51.0); HEMOGLOBIN 8.7 g/dL (13.6-17.8); IMMATURE GRANULOCYTES 1.6 %; IMMATURE GRANULOCYTES ABSOLUTE 0.15 10/3/uL (0.0-0.11); LYMPHOCYTES 9.7 %; LYMPHOCYTES ABSOLUTE 0.92 10/3/uL (0.67-4.30); MEAN CORPUS HGB CONC 33.7 g/dL (32.0-36.0); MEAN CORPUSCULAR HEMOGLOB 30.1 pg (26.0-34.0); MEAN CORPUSCULAR VOLUME 89.3 fL (80-100); MEAN PLATELET VOLUME 12.6 fL (9.2-13.0); MONOCYTES 14.1 %; MONOCYTES ABSOLUTE 1.33 10/3/uL (0.21-1.20); NEUTROPHILS 70.6 %; NEUTROPHILS ABSOLUTE 6.66 10/3/uL (2.02-8.40); PLATELET COUNT 233 10/3/uL (150-400); RBC DISTRIBUTION WIDTH 16.8 % (12.0-16.0); RED CELL COUNT 2.89 10/6/uL (4.7-6.1); WHITE BLOOD CELLS 9.4 10/3/uL (4.5-10.5)
[2016-10-09 04:31] LABS: MANUAL DIFF NO %
[2016-10-09 04:44] LABS: A/G RATIO 0.9 (0.7-1.9); ALBUMIN 3.1 G/DL (3.5-5.0); CALCIUM, SERUM 8.9 MG/DL (8.5-10.4); CHLORIDE, SERUM 106 MMOL/L (96-112); CO2 (CARBON DIOXIDE) 27 MMOL/L (24-34); CREATININE 0.77 MG/DL (0.70-1.30); GFR AFRICAN AMERICAN 102 ML/MIN (>=60); GFR NON AFRICAN AMERICAN 88 ML/MIN (>=60); GLOBULIN 3.6 G/DL (2.5-4.1); GLUCOSE, SERUM 100 MG/DL (60-99); PHOSPHORUS, SERUM 2.5 MG/DL (2.5-4.5); SGPT(ALT) 83 U/L (5-65); SODIUM, SERUM 138 MMOL/L (135-148); TOTAL BILIRUBIN 0.8 MG/DL (0-1.2); TOTAL PROTEIN 6.7 G/DL (6.0-8.5)
[2016-10-09 04:50] LABS: ALKALINE PHOSPHATASE 351 U/L (45-117); BUN (BLOOD UREA NITROGEN) 36 MG/DL (6-23); SGOT(AST) 91 U/L (5-40)
[2016-10-09 04:54] LABS: B NATRIURETIC PEPTIDE (BNP) 107.3 PG/ML (< 100.0)
[2016-10-09 05:16] LABS: PROCALCITONIN 0.18 ng/mL (<0.5)
[2016-10-10 04:13] LABS: BUN (BLOOD UREA NITROGEN) 37 MG/DL (6-23); CALCIUM, SERUM 9.3 MG/DL (8.5-10.4); CHLORIDE, SERUM 109 MMOL/L (96-112); CO2 (CARBON DIOXIDE) 24 MMOL/L (24-34); CREATININE 0.81 MG/DL (0.70-1.30); GFR AFRICAN AMERICAN 100 ML/MIN (>=60); GFR NON AFRICAN AMERICAN 86 ML/MIN (>=60); GLUCOSE, SERUM 93 MG/DL (60-99); PHOSPHORUS, SERUM 2.6 MG/DL (2.5-4.5); POTASSIUM, SERUM 3.9 MMOL/L (3.5-5.3); SODIUM, SERUM 142 MMOL/L (135-148); TRIGLYCERIDE 56 MG/DL (< 150)
[2016-10-10 04:15] LABS: BASOPHILS 0.1 %; BASOPHILS ABSOLUTE 0.01 10/3/uL (0.0-0.16); EOSINOPHILS 3.3 %; EOSINOPHILS ABSOLUTE 0.35 10/3/uL (0.0-0.53); HEMOGLOBIN 8.9 g/dL (13.6-17.8); IMMATURE GRANULOCYTES 1.6 %; IMMATURE GRANULOCYTES ABSOLUTE 0.17 10/3/uL (0.0-0.11); LYMPHOCYTES 9.8 %; LYMPHOCYTES ABSOLUTE 1.02 10/3/uL (0.67-4.30); MEAN CORPUSCULAR HEMOGLOB 29.4 pg (26.0-34.0); MEAN CORPUSCULAR VOLUME 89.1 fL (80-100); MEAN PLATELET VOLUME 12.1 fL (9.2-13.0); MONOCYTES 15.5 %; MONOCYTES ABSOLUTE 1.62 10/3/uL (0.21-1.20); NEUTROPHILS 69.7 %; NEUTROPHILS ABSOLUTE 7.28 10/3/uL (2.02-8.40); PLATELET COUNT 205 10/3/uL (150-400); RED CELL COUNT 3.03 10/6/uL (4.7-6.1); WHITE BLOOD CELLS 10.5 10/3/uL (4.5-10.5)
[2016-10-10 04:34] LABS: MANUAL DIFF NO %
[2016-10-10] MEDS ORDERED: L20 PO (10:59)
[2016-10-10] MEDS ORDERED: TPN (11:00)
[2016-11-03] MEDS ORDERED: SIN-CR PO (17:41)
[2016-11-03] MEDS ORDERED: AMIT10 PO (17:42)
[2016-11-03] MEDS ORDERED: LOP25 PO (17:42)
[2016-11-03] MEDS ORDERED: ZOCOR10 PO (17:42)
[2016-11-03] MEDS ORDERED: PRILO PO (17:42)
[2016-11-03] MEDS ORDERED: ENDOCET1 TAB PO (17:43)
[2016-11-03] MEDS ORDERED: ASAB PO (17:43)
[2016-11-03] MEDS ORDERED: L20 PO (17:43)
[2016-11-03] MEDS ORDERED: BIST PO (17:44)
[2016-11-03] MEDS ORDERED: CALTRAT600 PO (17:45)
[2016-11-03] MEDS ORDERED: IRON SUPPLEMENT PO (17:45)
[2016-11-03] MEDS ORDERED: CENTRUM PO (17:45)
[2016-11-03] MEDS ORDERED: VITAMIN D31000 UNIT PO (17:46)
[2016-11-03] MEDS ORDERED: ADVIL PO (17:47)
[2017-01-18] MEDS ORDERED: VITAMIN D400 UNI1 PO (09:44)
== END 2016-10-10 15:17 | disposition home or self-care (01) | DRG 917 ==
LOC: ER 13:38 → CDU1 18:27 → 4SO 10-05 16:54
PROVIDERS: Family Medicine; Hospitalist; Internal Medicine; Nurse Practitioner
PROC: 3E0336Z Introduction of Nutritional Substance into Peripheral Vein, Percutaneous Approach (ICD-10-PCS; principal; 2016-10-06)
DX: T40.2X5A Adverse effect of other opioids, initial encounter (principal); E43 Unspecified severe protein-calorie malnutrition; G93.41 Metabolic encephalopathy; K76.0 Fatty (change of) liver, not elsewhere classified; I50.42 Chronic combined systolic (congestive) and diastolic (congestive) heart failure; D64.9 Anemia, unspecified; G20 Parkinson's disease; I25.10 Atherosclerotic heart disease of native coronary artery without angina pectoris; K21.9 Gastro-esophageal reflux disease without esophagitis; K31.84 Gastroparesis; Z90.3 Acquired absence of stomach [part of]; Z68.23 Body mass index [BMI] 23.0-23.9, adult; Z95.1 Presence of aortocoronary bypass graft
CPT/HCPCS: 70450; 71010; 74176; 80048; 80053; 80076; 82140; 82330; 82962; 83735; 83880; 84100; 84134; 84145; 84478; 84484; 85025; 85610; 85730; 87040; 93005; 93971; 94640; 97110-GP; 97116-GP; 97162-GP; 97166-GO; 97530-GO; 99285; A9270-GY; G0480; G8978-CL-GP; G8979-CL-GP; G8980-CL-GP; G8987-CL-GO; G8988-CL-GO; G8989-CL-GO; J1940; P9047